=== PATIENT | female | born 1965 | race Caucasian/White ===

== ENCOUNTER 2022-10-04 08:30 | Observation (INO) ==
--- NOTE | 2022-09-05 11:14 | PAT Medication Instructions ---
Medication Instructions Date of Service September 05, 2022 Home Medications atorvastatin 40 mg tablet 40 mg PO QAM gabapentin 300 mg capsule 300 mg PO BID multivitamin 1 tab PO QAM naproxen 500 mg tablet 500 mg PO BID PRN Pain omeprazole 40 mg capsule,delayed release 40 mg PO QAM sertraline 25 mg tablet (Zoloft) 25 mg PO HS tramadol 50 mg tablet 50 mg PO UD PRN Pain ASK your surgeon for instructions naproxen 500 mg tablet 500 mg PO BID PRN Pain DO NOT take the morning of surgery multivitamin 1 tab PO QAM Take morning of surgery With a small sip of water, OTHERWISE NOTHING TO EAT OR DRINK AFTER MIDNIGHT: atorvastatin 40 mg tablet 40 mg PO QAM gabapentin 300 mg capsule 300 mg PO BID omeprazole 40 mg capsule,delayed release 40 mg PO QAM tramadol 50 mg tablet 50 mg PO UD PRN Pain (if needed) Take evening before surgery gabapentin 300 mg capsule 300 mg PO BID sertraline 25 mg tablet (Zoloft) 25 mg PO HS tramadol 50 mg tablet 50 mg PO UD PRN Pain (if needed) Other Notes If you have any questions please call us at [phone] or [phone] or [phone] or [phone]
--- NOTE | 2022-09-11 14:19 | Anesthesiology Consultation ---
Date of Service September 11, 2022 Assessment & Plan (1) Encounter for pre-operative examination: Chart Review Chart Review: Acceptable Risk for Surgery (pending surgeon ordered PCP clearance ) and Patient seen in Pre Admission Testing - Awaiting PCP clearance (pt setting up) ([facility] - Lupe Abbasi) - Check coags AM DOS (mildly elevated PTT on preop labs- discussed with Dr. Booker) Pt currently scheduled as 23 hours observation. If surgeon decides to change patient to Same Day Joint, patient would be acceptable risk for TKA, pending patient is motivated, has good support and surgeon's office completes [facility] Program preop requirements. Per PAT appt on 09/11/22, patient denies any recent travel. No recent Covid exposures, Covid related symptoms, or recent Covid positive tests. Pt is vaccinated for Covid. Will leave to surgeon's discretion if preop Covid testing needed. Educated on importance of using Covid precautions one week prior to surgery Left thumb ulnar collateral ligament repair 03/26/22= done under [facility] with LMA #4 x 1 attempt/atraumatic/good seal Teaching & Discussion Pre-Anesthesia Teaching/Discussion Notes: Instructed NPO after midnight before surgery,except medications with 15 cc of water. Medication instructions provided according to the PAT guidelines. History Surgery Operation Date: 10/04/22 08:50 Proposed Procedures p Left Total Knee Arthroplasty - Chase Connolly MD Height/Weight Height: 5 ft 1 in Weight: 88 kg Allergies Allergy/AdvReac Type Severity Reaction Status Date / Time acetaminophen Allergy Unknown Rash Verified 09/04/22 08:40 codeine Allergy Unknown Rash Verified 09/04/22 08:40 erythromycin base Allergy Unknown Rash Verified 09/04/22 08:40 Penicillins Allergy Unknown rash, Verified 09/04/22 08:40 throat irritation Sulfa (Sulfonamide Allergy Unknown Rash Verified 09/04/22 08:40 Antibiotics) Medications Home Medications Medication Instructions Recorded Confirmed Last Taken atorvastatin 40 mg tablet 40 mg PO QAM 01/17/21 09/04/22 03/26/22 04:00 gabapentin 300 mg capsule 300 mg PO BID 01/17/21 09/04/22 03/26/22 04:00 multivitamin 1 tab PO QAM 01/17/21 09/04/22 03/23/22 naproxen 500 mg tablet 500 mg PO BID PRN Pain 01/17/21 09/04/22 Unknown omeprazole 40 mg capsule,delayed 40 mg PO QAM 01/17/21 09/04/22 03/23/22 release sertraline 25 mg tablet (Zoloft) 25 mg PO HS 03/22/22 09/04/22 03/25/22 tramadol 50 mg tablet 50 mg PO UD PRN Pain 03/26/22 09/04/22 03/25/22 Past Medical History Medical History GERD (gastroesophageal reflux disease) Well controlled and stable Hot flashes states reason for Zoloft Hyperlipidemia Osteoarthritis hx injection left knee Mar 2022. Exercise / Class Metabolic Activity II 4-5 Yardwork/Stairs/Walk up hill (one flight of stairs - no chest pain or SOB ) Past Family History Family History Father Family hx of colon cancer Other No family history of adverse response to anesthesia Past Surgical History Surgical History (Updated 09/11/22 @ 14:27 by Fabby Flynn PA-C) Fusion of spine Cervical (ROM "30%) s/p fall at work Residual minimal dysphagia and left arm pain from surgery History of bilateral tubal ligation "at [facility]" History of x 3 History of carpal tunnel release LEFT History of colonoscopy History of esophagogastroduodenoscopy (EGD) Past Anesthesia History No Hx of Anesthesia Complications and No Family Hx of Anesthesia Complications History of PONV No Hx of PONV and No Hx of Motion Sickness Social History Smoking Status: Never smoker Do You Dip or Chew Tobacco: No Hx Alcohol Use: Yes Alcohol type: wine alcohol intake frequency: a few times a month Hx Substance Use: No substance use type: does not use Review of Systems Patient denies chest pain, shortness of breath, dyspnea on exertion, cough, wheezing, palpitations. No hx of seizures, stroke, VT, apnea/snoring. No hx of blood clots or blood transfusions Physical Exam Vital Signs VITALS BP 124/84 P 91 TEMP 98.2 SP02 96% RESP 16 Constitutional no acute distress ENMT Mouth: no TMJ clicking Thyromental Distance: > or= 3.5 Finger Breadths (3.5) Mallampati Class: II Caps on molars and side teeth Neck + limited neck extension (significant ) Respiratory normal respiratory effort; no respiratory distress Auscultation: lungs clear to auscultation bilaterally; no wheezes Cardiovascular Rate/Rhythm: regular rate and regular rhythm Heart Sounds: no murmur Vessels: no carotid bruit Musculoskeletal Spine: + pain with cervical ROM Extremities: extremities normal to inspection Psychiatric Orientation: alert Lab Results Anesthesia Preop Results Results Anesthesia Widget: WBC 5.82 K/ul (4.8-10.8) 09/11/22 Hgb 14.1 g/dl (12.0-16.0) 09/11/22 Hct 40.6 % (37.0-47.0) 09/11/22 Plt 181 K/uL (130-400) 09/11/22 Na 139 mmol/L (136-145) 09/11/22 K 3.7 mmol/L (3.5-5.1) 09/11/22 Cl 103 mmol/L (98-107) 09/11/22 CO2 31 mmol/L (21-32) 09/11/22 BUN 16 mg/dl (6-23) 09/11/22 Creat 0.68 mg/dl (0.6-1.2) 09/11/22 Fasting Glucose 120 mg/dl (70-99) H 09/11/22 PT 12.2 Seconds (9.0-12.0) H 09/11/22 PTT 34.1 Seconds (21.0-31.0) H 09/11/22 INR 1.1 (0.9-1.1) 09/11/22 Urine Color Yellow 09/11/22 Urine Appearance Cloudy (Clear) A 09/11/22 Urine pH 7.5 (4.5-7.5) 09/11/22 Urine Specific [place] 1.021 (1.000-1.030) 09/11/22 Urine Protein Negative (Negative) 09/11/22 Urine Glucose (UA) Negative (Negative) 09/11/22 Urine Ketones Negative (Negative) 09/11/22 Urine Blood Negative (Negative) 09/11/22 Urine Nitrite Positive (Negative) A 09/11/22 Urine Bilirubin Negative (Negative) 09/11/22 Urine Urobilinogen Negative (Negative) 09/11/22 Urine Leukocyte Esterase 3+ (Negative) H 09/11/22 Urine WBC (Auto) >30 /hpf (0-5) H 09/11/22 Urine RBC (Auto) 0-4 /hpf (0-4) 09/11/22 Urine Hyaline Casts (Auto) 1-5 /lpf (0-5) 09/11/22 Urine Epithelial Cells (Auto) >30 /lpf (0-5) H 09/11/22 Urine Bacteria (Auto) 4+ (Negative) H 09/11/22 Blood Type O Positive 09/11/22 Antibody Screen NEGATIVE 09/11/22 Testing Laboratory Results Surgeon's office informed of abnormal UA and positive MRSA screen swab- will leave to surgeon's discretion on how to proceed Elevated PTT- will repeat DOS Electrocardiogram Date: 09/11/22 Findings: + NSR @ (82bpm ) Normal EKG per cardio
--- NOTE | 2022-09-12 15:07 | History & Physical Report ---
Date of Service September 12, 2022 Assessment & Plan (1) Osteoarthritis of left knee: Plan: PRE-OP Diagnosis: Left knee osteoarthritis Planned Procedure: Left total knee arthroplasty Plan: Patient is scheduled to undergo this procedure at the [facility] with Dr. Connolly on September. Risks and complications of the procedure such as: Infection, bleeding, pain, scarring, nerve blood vessel damage, weakness, wound problems, stiffness, incomplete relief of symptoms, hardware failure, hardware loosening, wear, fracture, tendon or ligament injury, blood clots, embolism, cardiac, stroke and were explained to the patient at her visit today and informed consent for the procedure was obtained. Patient also understands risks of proceeding with surgical intervention during the COVID-19 pandemic. Currently she is asymptomatic and states that she has not been in contact with anyone positive for the virus recently. We will need to obtain preoperative medical clearance from the patient's primary care provider Lupe Ortiz. Patient is scheduled to meet with anesthesia at the hospital later this afternoon. While there she will obtain a CBC with differential, complete metabolic panel, PT/INR, PTT, blood type and screen, urinalysis, urine culture and sensitivity, EKG. During today's visit we reviewed the total knee packet. I provided the patient with paperwork to obtain obtaining a handicap placard for her vehicle. I provided her with information about lectures offered by [facility] in regards to joint replacement surgery. Patient has a walker that she will bring with her on the day of the procedure. I recommended that she purchase a shower chair and raised toilet seat. We discussed discharge planning from the hospital. Patient states she will most likely do in-home physical therapy for the first 2 weeks before transitioning to outpatient physical therapy. I advised the patient that she will be provided with a prescription for narcotic pain medication for postoperative pain control. We will have her on aspirin twice daily for the first 30 days postoperatively for blood clot prevention. Patient verbalized understanding of all information provided during today's visit. She thanks for the care that she received. If she has questions or concerns prior to her surgery, she will contact clinic. Patient be scheduled for 2-week postoperative follow-up visit with myself on October 19, 2022. After receiving the patient's preoperative studies, it was determined that she is colonized with MRSA and has an acute urinary tract infection. I contacted the patient and advised her that I was sending prescription for ciprofloxacin to treat her UTI along with prescriptions for mupirocin and chlorhexidine to apply to her nostrils for 5 days prior to surgery. This chart was completed utilizing [employer] ([employer]) voice recognition software. Grammatical errors, random word insertions, pronoun errors, and in complete sentences are an occasional consequence of the system. Any questions or concerns about the content, text, or information contained within the body of this dictation should be addressed directly to the physician for clarification. History of Present Illness Chief Complaint: Chief Complaint: Left knee pain Primary Care Provider: NO PCP History of Present Illness (including history relevant to procedure): This 56-year-old female presents the clinic today for preoperative history and physical. Patient states that she has had pain in her left knee for over 10 years. She actually had 2 previous knee arthroscopies done back in 1998 and 2004 for meniscus tears. She says her pain worsened in the last 4 years. She has been taking naproxen that gives her a little bit of relief. She has pain after walking more than half mile that causes her to stop. She non-reciprocates stairs. It is affecting her ability to perform at her job. She says it feels better if she uses heat, but really inactivity makes it worse. She feels the pain most in the anterior knee. It is nonradiating and fairly sharp in ch aracter. Patient is failed conservative treatment with physical therapy, corticosteroid injections. Patient was initially scheduled to undergo this procedure in late January 2021, however surgery was canceled due to the COVID- 19 pandemic and bed availability. She did consider doing this under the outpatient joint pathway, however she decided to elect to stay overnight because she lives several hours away from the facility. Review Of Systems: A 12 point review of systems is performed and is unremarkable except for those things stated in the HPI and past medical history. Past Medical History: Problems: Osteoarthritis of left knee Knee osteomyelitis, left Preop examination GERD (gastroesophageal reflux disease) High cholesterol Procedure History Procedure Procedure Date Comments Left knee - Meniscus surgery x 2 Cervical spinal fusion - [facility] Left thumb UCL repair Allergies and Sensitivities: erythromycin(hives) codeine(hives) Tylenol(Hives) sulfADIAZINE(Hives) PCN (penicillin)(hives) Current Home Meds: (Last Updated 09/12 13:08) atorvastatin (atorvastatin 20 mg oral tablet) 20 mg PO Daily chlorhexidine topical (chlorhexidine 2% topical pad) Wipe nasal passages 3 times daily, starting 5 days before surgery. ciprofloxacin (Cipro 500 mg oral tablet) 500 mg PO q12h ciprofloxacin (Cipro 500 mg oral tablet) 500 mg PO q12h UTI gabapentin (gabapentin 300 mg oral capsule) 300 mg PO qid mupirocin topical (Bactroban 2% topical ointment) 1 appl topical tid apply a thin film to nasal passagesStart 5 days before surgery naproxen (naproxen 500 mg oral tablet) 500 mg PO bid PRN: as needed for pain nortriptyline (nortriptyline 10 mg oral capsule) omeprazole (omeprazole 20 mg oral delayed release capsule) 20 mg PO bid ondansetron (Zofran 4 mg oral tablet) 4 mg PO q8h PRN: as needed for nausea/vomiting tiZANidine (tiZANidine 2 mg oral tablet) 8 mg PO q8h Initial Wt: 09/11 87.0 kg 191 lb Allergies Allergy/AdvReac Type Severity Reaction Status Date / Time acetaminophen Allergy Unknown Rash Verified 09/04/22 08:40 codeine Allergy Unknown Rash Verified 09/04/22 08:40 erythromycin base Allergy Unknown Rash Verified 09/04/22 08:40 Penicillins Allergy Unknown rash, Verified 09/04/22 08:40 throat irritation Sulfa (Sulfonamide Allergy Unknown Rash Verified 09/04/22 08:40 Antibiotics) Home Medications Medication Instructions Recorded Confirmed Type atorvastatin 40 mg tablet 40 mg PO QAM 01/17/21 09/04/22 History gabapentin 300 mg capsule 300 mg PO BID 01/17/21 09/04/22 History multivitamin 1 tab PO QAM 01/17/21 09/04/22 History naproxen 500 mg tablet 500 mg PO BID PRN Pain 01/17/21 09/04/22 History omeprazole 40 mg capsule,delayed 40 mg PO QAM 01/17/21 09/04/22 History release sertraline 25 mg tablet (Zoloft) 25 mg PO HS 03/22/22 09/04/22 History tramadol 50 mg tablet 50 mg PO UD PRN Pain 03/26/22 09/04/22 History Past Med/Surg History Medical History GERD (gastroesophageal reflux disease) Well controlled and stable Hot flashes states reason for Zoloft Hyperlipidemia Osteoarthritis hx injection left knee Mar 2022. Surgical History Fusion of spine Cervical (ROM "30%) s/p fall at work Residual minimal dysphagia and left arm pain from surgery History of bilateral tubal ligation "at [facility]" History of x 3 History of carpal tunnel release LEFT History of colonoscopy History of esophagogastroduodenoscopy (EGD) Family History Father Family hx of colon cancer Other No family history of adverse response to anesthesia Social History Smoking Status: Never smoker Second Hand Exposure: No; Do You Dip or Chew Tobacco: No; Hx Alcohol Use: Yes Alcohol type: wine Hx Substance Use: No Preferred Language: Maldivian Communication Ability: Effective At Home Independent Call Center Agent Required: No Beliefs That Will Affect Care: Faith Faith Beliefs: advent Current Living Situation: Spouse Feels Safe at Home: Yes Assistive Devices: Contacts and Glasses Review of Systems All systems reviewed & are unremarkable except as noted in Subjective Physical Exam Physical Exam: Physical Exam: (relevant to the procedure, including heart and lung evaluation) General: Alert and oriented x3 with proper grooming and hygiene Eyes: Pupils are equal and reactive to light with accommodation. Extraocular movements are intact Throat: Posterior oropharynx is clear with absence of edema, erythema or exudate. Dentition is appropriate Cardiac: Regular rate and rhythm with no murmurs or gallops appreciated Lungs: Regular rate and rhythm with no murmurs or gallops appreciated Abdomen: Obese, nondistended, nontender with NABS Extremities: Left knee; range of motion is from 5 degrees of extension to 100 degrees of flexion. There is visible valgus malalignment. Patient has medial and lateral joint line tenderness when the knee is palpated in the flexed position. There is audible crepitation with passive range of motion. Her patella is not mobile due to arthritic change within the patellofemoral joint. There is no laxity with varus or valgus stressing. Patient is neurovascular intact in the left lower extremity. Neuro: Cranial nerves II through XII are intact no motor or sensory deficit Skin: Normal in appearance no open skin areas or discharge Results & Data Diagnostic Findings Studies (relevant to the procedure): imaging of the left knee obtained in April of 2022 show [id number] osteoarthritis of the left knee. There is calcification noted in the posteromedial knee
[~2022-10-04 08:30] MED LIST: ALLERGY Noted to ORDERED Medication SCH; BUPIVACAINE 0.5 % 5 MG/1 ML PF 10ML VIAL ONE; FAMOTIDINE 20 MG TAB PO SCH; LR 500ML BOLUS, THEN 15ML/HR IV SCH; LR 60ML/HR IV SCH; ROPIVACAINE 0.5% 5 MG/ML 30 ML VIAL ONE; ROPIVACAINE 0.5% HCL/PF 150 MG, BUPIVACAINE 0.75% MPF 20 ML, EPINEPHrine 0.15 MG, Ketor... INFIL SCH; Scopolamine 1 MG TDSY TD SCH; TRANEXAMIC ACID 1,000 MG **IV Intra-op IV SCH; TRANEXAMIC ACID 1,000 MG **IV Pre-op IV SCH; VANCOMYCIN HCL 1,250 MG in SODIUM CHLORIDE 0.9% 250 ML IV SCH; ceFAZolin 2000MG 2,000 MG/15 ML SYR IV SCH; dexAMETHasone 4 MG TAB PO SCH; traMADol HCL 50 MG TABLET PO SCH
[2022-10-04 09:31] LABS: INR 1.1 (0.9-1.1); Partial Thromboplastin Ratio 1.2; Partial Thromboplastin Time 34.3 Seconds (21.0-31.0)
[2022-10-04] MEDS ORDERED: MIDAZOLAM HCL 1 MG/ML 2ML VIAL ONE (10:34)
[2022-10-04] MEDS ORDERED: HYDROmorphone INJ 2 MG/ML SYR/VIAL IV PRN (10:58)
[2022-10-04] MEDS ORDERED: ePHEDrine sulfate 50 MG/ML AMP IV PRN (10:58)
[2022-10-04] MEDS ORDERED: ONDANSETRON INJ 2 MG/ML 2 ML VIAL IV PRN ×2 (10:58→13:44)
[2022-10-04] MEDS ORDERED: ATROPINE SULFATE 0.1 MG/ML 10ML SYR IV PRN (10:58)
--- NOTE | 2022-10-04 10:58 | History & Physical Bridge Note ---
Date of Service October 04, 2022 History & Physical Bridge Note I have examined the patient, reviewed the History & Physical and in the interval since the performance of the History & Physical I have noted the following changes of clinical significance: no changes noted
[2022-10-04] MEDS ORDERED: ORTHO JOINT ANESTHETIC ONE (11:16)
[2022-10-04] MEDS ORDERED: PROPOFOL IV EMULSION 10 MG/ML 20 ML VIAL IV ONE (11:54)
[2022-10-04] MEDS ORDERED: ceFAZolin 2000MG 2,000 MG/15 ML SYR IV ONE (12:10)
--- NOTE | 2022-10-04 13:32 | Operative Report ---
Post Operative Report Pre & Post Diagnosis Operation Date: 10/04/22 10:50 Pre-Op Diagnosis: Left Knee Osteoarthritis Post-Op Diagnosis: Left Knee Osteoarthritis I identified the patient and participated in the time-out.: Yes Procedure Operation Date: 10/04/22 10:50 Actual Procedures p Left Total Knee Arthroplasty(Left) - Chase Connolly MD Surgeon Chase Connolly MD Disc Ruler Operator AMBROSIO Geiger PA-C. No resident or fellow was available to assist. Estimated Blood Loss 100 Findings Consistent with Post-Op Diagnosis Specimens Left knee bone and soft tissue contents Anesthesia Type Spinal MAC Complications none Disposition Disposition: Recovery Room Indications 56-year-old female with left knee osteoarthritis refractory to conservative management. X-rays demonstrate [id number] arthritis. I had a long discussion with her about the risks and benefits of surgery, alternatives to surgery, and expected outcomes. After reviewing all these she elected to proceed with surgery. All questions were answered. Informed consent was signed. Description of Procedure Patient was identified in the preoperative holding area where the surgical site, left knee, was marked. Spinal anesthetic was placed by anesthesia. Patient was brought back to the operating room, placed on the operating room table, and IV sedation was administered. A bump was placed underneath the ipsilateral hip. All bony prominences were padded. Perioperative antibiotics and tranexamic acid were administered. Exam under anesthesia was performed. This demonstrated patient of valgus malalignment of approximately 12 degrees. Range of motion was approximately 6 degrees up to 105 degrees. Stable to varus and valgus stressing at 30 degrees. The surgical site was prepped and draped in the normal sterile f ashion. Prior to incision a multidisciplinary timeout was called. All in the room were in agreement. We began by exsanguinating the limb with an Esmarch bandage. Tourniquet was inflated to 250 mmHg. A 14 cm long incision was made over the anterior aspect of the knee. I dissected through the subcutaneous tissues to the level of the fascia. Full-thickness flaps were raised above the fascia. A median parapatellar arthrotomy was made. Half the fat pad was excised. A medial release was performed with Bovie electrocautery on the proximal tibia. Synovitis in the knee and suprapatellar pouch was removed. The patella was then everted and held with 2 towel clips. The thickness of the patella was measured at 24 mm. Patellar resection was performed. Caliper showed the patella thickness now to be 14 mm. A size 35 trial was placed and had a great fit. The 3 drill holes were placed then the trial button was placed. The patellar thickness was now 23 mm which I was very happy with. The patellar trial was then removed, and the knee was flexed up. Retractors were placed to protect the MCL and LCL. Osteophytes were removed from the femoral condyles and intercondylar notch. The ACL and PCL were excised. Intramedullary drill guide was drilled into the femur. Distal femoral cutting guide was placed set at 5 degrees of valgus to resect 11 mm off the distal femur. Distal femoral resection was made without difficulty. The tibia was then exposed. The lateral meniscus was sharply excised. The tibial cutting jig was positioned in line with the tibial shaft in the coronal plane and with 3 degrees of posterior slope in the sagittal plane to resect 9 mm off the less involved compartment. The jig was then pinned in position and the tibial cut was made. We then brought the knee into full extension. Lamina spreaders were placed. The medial meniscus was excised. The extension block was then placed for 5 mm thickness poly. This gave us full extension and excellent stability to varus and valgus stress. Next the extension block was removed, the knee was flexed up, collateral ligaments were protected, and the epicondylar axis and Whitesides line were marked out on the distal femoral cut. Femoral sizing guide was placed. External rotation was set at 3 degrees so that the posterior cut would be parallel with the epicondylar axis and perpendicular with Whitesides line. The patient sized to a size 4 femur. 2 pins were then placed through the jig into the distal femur. The jig was removed and the appropriately sized 4-in-1 cutting jig was placed over the pins, then fixated to the bone using threaded, headed pins. We confirmed that we would not notch the femur with our anterior cut. Our 4 cuts were then made. The cutting jig was removed. The flexion bl ock was then placed with the knee held at 90 degrees. There was excellent stability to varus and valgus at 90 degrees with no gapping medially or laterally. Next the box cutting jig was placed on the distal femur. The box cut was made and the femoral trial was impacted into position. Lug holes were drilled in the distal femur. We then reexposed the tibia. The tibia was sized to a 4 for a fixed-bearing component. The tibial tray with a 5 mm thickness polyethylene liner was placed on the cut tibial surface and the knee was brought through a full range of motion. There was excellent stability to varus valgus stress throughout a full range of motion, which was approximately 0-125 degrees. Bovie electrocautery was used to annemarie the tibia at the site where the tibial tray rested in full extension. We then flexed up the knee, removed the polyethylene liner, and pinned the tibial tray into position to match the cautery annemarie. The intramedullary drill followed by the keel punch were used to prepare the tibia. Next the trial components were removed. I then injected the posterior capsule and periosteum with the periarticular injection cocktail. The bone cuts were then irrigated and dried while the cement was mixed on the back table. The femoral component was cemented on first. Excess cement was removed. A lap sponge was placed over the femoral component for protection, then the tibia was subluxated anteriorly. The all polyethylene tibial component was then cemented in place. Again excess cement was removed. The knee was brought into full extension and held there until the cement cured. The patella was cemented and clamped. Dilute Betadine solution was then allowed to soak in the knee while the cement cured. Once the cement was fully cured, the knee was irrigated out, the tourniquet was let down and meticulous hemostasis was ensured. The knee was brought through a full range of motion. I was were very happy with the patella tracking and the stability. We then began to close. Interrupted 0 Vicryl suture was used to repair the patellar retinaculum in [id number] fashion. The quadriceps and patellar tendons were run with #1 Vicryl. The deep dermal layer was closed with interrupted 2-0 Vicryl. Dermabond and Zipline was used for the skin, followed by a Silverlon dressing. A compressive Jorge L wrap was placed and the knee was placed into a knee immobilizer. Patient's sedation was lifted and was transferred to recovery room in stable condition. Summary of implants: Depuy Attune Posterior Stabilized Cemented Femur, size 4 left Attune All-polyethylene tibial component, posterior stabilized 5 mm thickness, size 4 Attune patella medialized dome, size 35 2 batches of simplex high viscosity bone cement Postoperative course: Patient will be admitted to the floor for pain control and monitoring. Weightbearing as tolerated with a walker with no knee range of motion for 48 hours. Aspirin for DVT prophylaxis. I attest to the content of the Intraoperative Record and any orders documented therein. Any exceptions are noted below.
[2022-10-04] MEDS ORDERED: VANCOMYCIN CONSULT ACTIVE PRN (13:44)
[2022-10-04] MEDS ORDERED: HYDROmorphone INJ 0.5 MG/0.5 ML SYR IV PRN (13:44)
[2022-10-04] MEDS ORDERED: diphenhydrAMINE 50 MG/ML VIAL IV PRN (13:44)
[2022-10-04] MEDS ORDERED: bisacodyL 10 MG SUPP PR PRN (13:44)
[2022-10-04] MEDS ORDERED: ALUMINUM/MAGNESIUM SUSP 30 ML UDC PO PRN (13:44)
[2022-10-04] MEDS ORDERED: NALOXONE HCL 0.4 MG/1 ML VIAL/CARP IV PRN (13:44)
[2022-10-04] MEDS ORDERED: METOCLOPRAMIDE HCL INJ 5 MG/ML 2 ML VIAL IV PRN (13:44)
[2022-10-04] MEDS ORDERED: MAGNESIUM HYDROXIDE SUSP 30 ML UDC PO PRN (13:44)
--- NOTE | 2022-10-04 13:44 | Operative Report ---
Post Operative Report Pre & Post Diagnosis Operation Date: 10/04/22 10:50 Pre-Op Diagnosis: Left Knee Osteoarthritis Post-Op Diagnosis: Left Knee Osteoarthritis I identified the patient and participated in the time-out.: Yes Procedure Operation Date: 10/04/22 10:50 Actual Procedures p Left Total Knee Arthroplasty(Left) - Chase Connolly MD Surgeon Chase Connolly MD Master Fire Control Technician AMBROSIO Geiger PA-C. No resident or fellow was available to assist. Estimated Blood Loss 100 Findings Consistent with Post-Op Diagnosis Specimens none Description of Procedure I was present during the entire case assisting with positioning,prepping, draping, wound retraction, wound closure, dressing and immobilizer placement. No fellow present. Please see Dr. Connolly procedure note for specifics of the case. I attest to the content of the Intraoperative Record and any orders documented therein. Any exceptions are noted below.
[2022-10-04] MEDS ORDERED: traMADol HCL 50 MG TABLET PO PRN (13:48)
--- NOTE | 2022-10-04 14:41 | XRay Report ---
LEFT KNEE 2 VIEWS History: Left total knee arthroplasty. Degenerative arthritis. Postop. FINDINGS: The patient is status post a left total knee arthroplasty. The hardware is intact. No fract ure or dislocation. IMPRESSION: Left total knee arthroplasty. No evidence for hardware complication. ACT 112: Negative or not required by law. Electronically signed by: Wilmer Harris M.D. 10/04/2022 2:40 PM
--- NOTE | 2022-10-04 14:58 | Anesthesiology Progress Note ---
Date of Service October 04, 2022 Anesthesia Post Procedure Vital Signs Vital Signs: Temp Pulse Pulse Resp BP Pulse Ox O2 Del Method 10/04/22 14:47 36.8 C 80 18 111/75 96 Room Air 10/04/22 14:30 78 15 125/68 96 Room Air 10/04/22 14:10 37.2 C 72 13 113/73 96 Room Air 10/04/22 14:00 78 20 115/77 98 Room Air 10/04/22 13:50 79 23 116/76 98 Room Air 10/04/22 14:20 80 15 112/74 96 Room Air 10/04/22 13:43 37.2 C 79 17 122/82 97 Room Air 10/04/22 08:56 36.6 C 71 20 123/89 99 Room Air Pain Intensity Left Knee: Pain Intensity: 8 Transfer of Care Handoff Completed per policy Notes Mental Status: alert / awake / arousable and participated in evaluation Nausea / Vomiting: adequately controlled Pain: adequately controlled Airway Patency, RR, SpO2: stable & adequate BP & HR: stable & adequate Hydration State: stable & adequate Neuraxial Anesthesia: was administered and sensory block is resolving Anesthetic Complications: no major complications apparent and Pt Satisfied with anesthetic care
[2022-10-04] MEDS: ALLERGY Noted to ORDERED Medication SCH ×4 (15:03→15:51)
[2022-10-04] MEDS: SODIUM CHLORIDE 0.9% 1000ML 1,000 ML IV SCH (15:38)
[2022-10-04] MEDS: KETOROLAC TROMETHAMINE 15 MG/ML VIAL IV SCH ×2 (15:50→21:11)
[2022-10-04] MEDS: Scopolamine CHECK PATCH PLACEMENT SCH (15:52)
--- NOTE | 2022-10-04 17:14 | Orthopedic Progress Note ---
Date of Service October 04, 2022 Assessment & Plan (1) Status post total knee replacement, left: Plan: routine postoperative care. Physical therapy and Occupational Therapy tomorrow. Plan on discharge home tomorrow after PT OT. My physician's child life assistant will see her tomorrow morning. Admission and Anticipated Discharge Date Admission Date: October 04, 2022 Subjective Postop day 0 status post left total knee arthroplasty. Patient reports her knee is feeling well. Denies fevers chills chest pain shortness of breath. No nausea or vomiting. Physical Exam Physical Exam: Resting comfortably in no acute distress. Left leg reveals dressing to be clean dry and intact. She is able to wiggle her toes and dorsi and plantarflex her ankle. Sensory intact to light touch dorsal and plantar aspects of the left foot. Results & Data Vital Signs (Past 12 Hours) Vital Signs Temp Pulse Pulse Resp BP Pulse Ox O2 Del Method 10/04/22 16:51 36.9 C 81 14 133/88 100 Room Air 10/04/22 15:44 36.4 C L 71 14 118/81 98 Room Air 10/04/22 15:12 36.8 C 71 16 110/75 97 Room Air 10/04/22 14:47 36.8 C 80 18 111/75 96 Room Air 10/04/22 14:30 78 15 125/68 96 Room Air 10/04/22 14:10 37.2 C 72 13 113/73 96 Room Air 10/04/22 14:00 78 20 115/77 98 Room Air 10/04/22 13:50 79 23 116/76 98 Room Air 10/04/22 14:20 80 15 112/74 96 Room Air 10/04/22 13:43 37.2 C 79 17 122/82 97 Room Air 10/04/22 08:56 36.6 C 71 20 123/89 99 Room Air Diagnostic Findings I reviewed her postop x-rays that show the hardware in good position with no evidence of complication. Calcification seen in the posterior knee preoperatively is still present. Discussed with the patient that this is likely not going to cause her any issues postoperatively, however if it does , it could always be removed later.
[2022-10-04] MEDS: oxyCODONE HCL IR 5 MG TAB (IMMEDIATE RELEASE) PO PRN ×2 (17:54→23:40)
[2022-10-04] MEDS: ceFAZolin 2000MG 2,000 MG/15 ML SYR IV SCH (19:28)
[2022-10-04] MEDS ORDERED: TRANEXAMIC ACID / 0.7% NACL 1,000 MG/100 ML BAG IV SCH (19:45)
[2022-10-04] MEDS ORDERED: SERTRALINE HCL 50 MG TABLET PO SCH (21:00)
[2022-10-04] MEDS ORDERED: SENNA 8.6 MG TAB PO SCH (21:00)
[2022-10-04] MEDS: DOCUSATE SODIUM 100 MG CAP PO SCH (21:10)
[2022-10-04] MEDS: GABAPENTIN 300 MG CAP PO SCH (21:10)
[2022-10-04] MEDS ORDERED: VANCOMYCIN HCL 1,250 MG in SODIUM CHLORIDE 0.9% 500 ML IV SCH (23:45)
[2022-10-05] MEDS: Scopolamine CHECK PATCH PLACEMENT SCH ×2 (00:02→07:45)
[2022-10-05] MEDS: ALLERGY Noted to ORDERED Medication SCH (00:05)
[2022-10-05] MEDS: ceFAZolin 2000MG 2,000 MG/15 ML SYR IV SCH (03:16)
[2022-10-05] MEDS: KETOROLAC TROMETHAMINE 15 MG/ML VIAL IV SCH ×2 (03:16→07:47)
[2022-10-05] MEDS: SODIUM CHLORIDE 0.9% 1000ML 1,000 ML IV SCH (04:36)
[2022-10-05] MEDS: oxyCODONE HCL IR 5 MG TAB (IMMEDIATE RELEASE) PO PRN (05:54)
[2022-10-05 06:17] LABS: Hematocrit (blood only) 37.8 % (37.0-47.0); Hemoglobin 13.2 g/dl (12.0-16.0); Mean Corpuscular Hemoglobin 32.8 pg (25.0-34.0); Mean Corpuscular Hgb Conc 34.9 g/dL (32.0-36.0); Mean Corpuscular Volume 93.8 fL (80.0-100.0); Mean Platelet Volume 10.5 fL (9.4-12.4); Platelet Count 182 K/uL (130-400); RDW Standard Deviation 41.2 fL (36.4-46.3); Red Blood Count 4.03 M/uL (4.20-5.40); White Blood Count 11.29 K/ul (4.8-10.8)
[2022-10-05 07:34] LABS: BUN Creatinine Ratio 13.6 (10-20); Calcium 8.1 mg/dl (8.6-10.3); Creatinine Clr Calc Pharmacy 94.5 ml/min; Est GFR (African American) 115.3 ml/min; Est GFR (Non-African American) 99.4 ml/min; Potassium 4.2 mmol/L (3.5-5.1)
[2022-10-05] MEDS: GABAPENTIN 300 MG CAP PO SCH (07:45)
[2022-10-05] MEDS: DOCUSATE SODIUM 100 MG CAP PO SCH (07:46)
[2022-10-05] MEDS ORDERED: dexAMETHasone 4 MG TAB PO SCH (08:00)
[2022-10-05] MEDS ORDERED: PANTOprazole 40 MG TAB PO SCH (09:00)
[2022-10-05] MEDS ORDERED: ATORVASTATIN 40 MG TAB PO SCH (09:00)
[2022-10-05] MEDS ORDERED: NON-FORMULARY MEDICATION (Multivitamin Tablet) PO SCH (09:00)
[2022-10-05] MEDS ORDERED: MULTIVITAMIN TAB PO SCH (09:00)
--- NOTE | 2022-10-05 09:21 | Orthopedic Progress Note ---
Date of Service October 05, 2022 Assessment & Plan (1) Status post total knee replacement, left: Plan: Weightbearing as tolerated with walker assistance ICDs wrap Immobilizer use for the first 48 hours postoperatively Keep Silverlon dressing in place until follow-up DVT prophylaxis with aspirin and OJ stockings Pain control with p.o. medication Plan is to discharge home later this morning with in-home physical therapy for the first 2 weeks Follow-up at [facility] orthopedics as previously scheduled With questions contact our clinic at [phone] Admission and Anticipated Discharge Date Admission Date: October 04, 2022 Subjective This 56-year-old female is day 1 status post left total knee arthroplasty. Patient states she is doing very well. She states her pain is effectively controlled with the oral pain medication she was given. She is very pleased with the results of her surgery. She is anxious to be discharged home later this morning. Currently she denies chest pain, shortness of breath, fever, chills, sweats, lethargy or numbness or tingling in her left lower extremity. She also denies nausea, vomiting, diarrhea or difficulty voiding. Review of Systems Review of Systems: All systems reviewed & are unremarkable except as noted in Subjective Physical Exam Physical Exam: Left knee: Outer dressing was removed. Silverlon is clean dry and intact and left in place. Patient is able perform an active straight leg raise test. She is able to actively dorsi and plantarflex her foot. She is able to range 0 degrees of extension actively and approximately 85 degrees flexion without difficulty. Her quad strength is 4 out of 5. She is neurovascularly intact in the left lower extremity. Results & Data Vital Signs (Past 12 Hours) Vital Signs Temp Pulse Resp BP Pulse Ox O2 Del Method 10/05/22 07:07 36.9 C 83 18 111/68 94 Room Air 10/05/22 02:16 36.4 C L 85 18 101/63 97 Room Air 10/04/22 22:18 36.4 C L 71 15 117/79 94 Room Air Diagnostic Findings Laboratory Results WBC 11.29 K/ul (4.8-10.8) H 10/05/22 05:34 RBC 4.03 M/uL (4.20-5.40) L 10/05/22 05:34 Hgb 13.2 g/dl (12.0-16.0) 10/05/22 05:34 Hct 37.8 % (37.0-47.0) 10/05/22 05:34 MCV 93.8 fL (80.0-100.0) 10/05/22 05:34 MCH 32.8 pg (25.0-34.0) 10/05/22 05:34 MCHC 34.9 g/dL (32.0-36.0) 10/05/22 05:34 RDW Std Deviation 41.2 fL (36.4-46.3) 10/05/22 05:34 RDW Coeff of Beau 12.0 % (11.5-14.5) 10/05/22 05:34 Plt Count 182 K/uL (130-400) 10/05/22 05:34 MPV 10.5 fL (9.4-12.4) 10/05/22 05:34 PT 12.0 Seconds (9.0-12.0) 10/04/22 08:51 INR 1.1 (0.9-1.1) 10/04/22 08:51 APTT 34.3 Seconds (21.0-31.0) H 10/04/22 08:51 PTT Ratio 1.2 10/04/22 08:51 Sodium 136 mmol/L (136-145) 10/05/22 05:34 Potassium 4.2 mmol/L (3.5-5.1) 10/05/22 05:34 Chloride 104 mmol/L (98-107) 10/05/22 05:34 Carbon Dioxide 28 mmol/L (21-32) 10/05/22 05:34 Anion Gap 4 (3-11) 10/05/22 05:34 BUN 9 mg/dl (6-23) 10/05/22 05:34 Creatinine 0.66 mg/dl (0.6-1.2) 10/05/22 05:34 Est Cr Clr Drug Dosing 94.5 ml/min 10/05/22 05:34 Est GFR ( Amer) 115.3 ml/min 10/05/22 05:34 Est GFR (Non-Af Amer) 99.4 ml/min 10/05/22 05:34 BUN/Creatinine Ratio 13.6 (10-20) 10/05/22 05:34 Glucose 152 mg/dl (70-99(Fasting)) H 10/05/22 05:34 Calcium 8.1 mg/dl (8.6-10.3) L 10/05/22 05:34 Impressions Knee X-Ray 10/04/22 13:44 LEFT KNEE 2 VIEWS History: Left total knee arthroplasty. Degenerative arthritis. Postop. FINDINGS: The patient is status post a left total knee arthroplasty. The hardware is intact. No fracture or dislocation. IMPRESSION: Left total knee arthroplasty. No evidence for hardware complication. ACT 112: Negative or not required by law. Electronically signed by: Wilmer Harris M.D. 10/04/2022 2:40 PM
--- NOTE | 2022-10-05 09:32 | Discharge Summary ---
Date of Service October 05, 2022 Admission HPI Per Admitting Provider History of Present Illness (including history relevant to procedure): This 56-year-old female presents the clinic today for preoperative history and physical. Patient states that she has had pain in her left knee for over 10 years. She actually had 2 previous knee arthroscopies done back in 1998 and 2004 for meniscus tears. She says her pain worsened in the last 4 years. She has been taking naproxen that gives her a little bit of relief. She has pain after walking more than half mile that causes her to stop. She non-reciprocates stairs. It is affecting her ability to perform at her job. She says it feels better if she uses heat, but really inactivity makes it worse. She feels the pain most in the anterior knee. It is nonradiating and fairly sharp in character. Patient is failed conservative treatment with physical therapy, corticosteroid injections. Patient was initially scheduled to undergo this procedure in late January 2021, however surgery was canceled due to the COVID- pandemic and bed availability. She did consider doing this under the outpatient joint pathway, however she decided to elect to stay overnight because she lives several hours away from the facility. Review Of Systems: A 12 point review of systems is performed and is unremarkable except for those things stated in the HPI and past medical history. Past Medical History: Problems: Osteoarthritis of left knee Knee osteomyelitis, left Preop examination GERD (gastroesophageal reflux disease) High cholesterol Procedure History Procedure Procedure Date Comments Left knee - Meniscus surgery x 2 Cervical [facility] fusion - [facility] Left thumb UCL repair Allergies and Sensitivities: erythromycin(hives) codeine(hives) Tylenol(Hives) sulfADIAZINE(Hives) PCN (penicillin)(hives) Current Home Meds: (Last Updated 09/12 13:08) atorvastatin (atorvastatin 20 mg oral tablet) 20 mg PO Daily chlorhexidine topical (chlorhexidine 2% topical pad) Wipe nasal passages 3 times daily, starting 5 days before surgery. ciprofloxacin (Cipro 500 mg oral tablet) 500 mg PO q12h ciprofloxacin (Cipro 500 mg oral tablet) 500 mg PO q12h UTI gabapentin (gabapentin 300 mg oral capsule) 300 mg PO qid mupirocin topical (Bactroban 2% topical ointment) 1 appl topical tid apply a thin film to nasal passagesStart 5 days before surgery naproxen (naproxen 500 mg oral tablet) 500 mg PO bid PRN: as needed for pain nortriptyline (nortriptyline 10 mg oral capsule) omeprazole (omeprazole 20 mg oral delayed release capsule) 20 mg PO bid ondansetron (Zofran 4 mg oral tablet) 4 mg PO q8h PRN: as needed for nausea/vomiting tiZANidine (tiZANidine 2 mg oral tablet) 8 mg PO q8h Initial Wt: 09/11 87.0 kg 191 lb Admission Exam Per Admitting Provider Physical Exam: (relevant to the procedure, including heart and lung evaluation) General: Alert and oriented x3 with proper grooming and hygiene Eyes: Pupils are equal and reactive to light with accommodation. Extraocular movements are intact Throat: Posterior oropharynx is clear with absence of edema, erythema or exudate. Dentition is appropriate Cardiac: Regular rate and rhythm with no murmurs or gallops appreciated Lungs: Regular rate and rhythm with no murmurs or gallops appreciated Abdomen: Obese, nondistended, nontender with NABS Extremities: Left knee; range of motion is from 5 degrees of extension to 100 degrees of flexion. There is visible valgus malalignment. Patient has medial and lateral joint line tenderness when the knee is palpated in the flexed position. There is audible crepitation with passive range of motion. Her patella is not mobile due to arthritic change within the patellofemoral joint. There is no laxity with varus or valgus stressing. Patient is neurovascular intact in the left lower extremity. Neuro: Cranial nerves II through XII are intact no motor or sensory deficit Skin: Normal in appearance no open skin areas or discharge Principal Diagnosis Left knee osteoarthritis Discharge Exam Left knee: Outer dressing was removed. Silverlon is clean dry and intact and left in place. Patient is able perform an active straight leg raise test. She is able to actively dorsi and plantarflex her foot. She is able to range 0 degrees of extension actively and approximately 85 degrees flexion without difficulty. Her quad strength is 4 out of 5. She is neurovascularly intact in the left lower extremity. Discharge Data Allergies Allergy/AdvReac Type Severity Reaction Status Date / Time acetaminophen Allergy Unknown Rash Verified 10/04/22 08:54 codeine Allergy Unknown Rash Verified 10/04/22 08:54 erythromycin base Allergy Unknown Rash Verified 10/04/22 08:54 Penicillins Allergy Unknown rash, Verified 10/04/22 08:54 throat irritation Sulfa (Sulfonamide Allergy Unknown Rash Verified 10/04/22 08:54 Antibiotics) Procedures Performed Operation Date: 10/04/22 10:50 Actual Procedures p Left Total Knee Arthroplasty(Left) - Chase Connolly MD Ordered Studies 10/04/22 05:00 US - OR guided needle placemen Routine Hospital Course (1) Status post total knee replacement, left: Patient had an uneventful overnight stay following left total knee arthroplasty. She is very pleased with the results of the surgery. She is planning on discharge home today with in-home physical therapy for the first 2 weeks postoperatively. Weightbearing as tolerated with walker assistance ICDs wrap Immobilizer use for the first 48 hours postoperatively Keep Silverlon dressing in place until follow-up DVT prophylaxis with aspirin and OJ stockings Pain control with p.o. medication Plan is to discharge home later this morning with in-home physical therapy for the first 2 weeks Follow-up at [facility] orthopedics as previously scheduled With questions contact our clinic at [phone] Total Time Total Time Spent Total Time Spent (In Minutes): 20 minutes Discharge Plan Discharge Items Patient Disposition: Home - Home Health Services Reason For Visit: Left Knee Osteoarthritis Discharge Diagnosis: Left Knee Osteoarthritis Activity: As commented below Lifting: None Bathing: Keep incision dry Bathing Comment: May shower tomorrow Sexual Activity: Wait until after follow-up appointment Exercise/Sports: Wait until after follow-up appointment Driving/Machine Use: No driving until cleared by medical record retrieval specialist Weightbearing: Left weightbearing Weightbearing Comment: as tolerated with walker and immobilizer for first 48 hrs Non-emergency contact: Surgeon Call non-emergency contact if: you have any medication questions, your pain is not controlled, your temperature is above 101.5, your wound has increased dr storey and your wound pain has increased Follow-up/Referrals: Viktor Geiger PA-C [Physician Set Up Operator] - 10/17/22 10:45 am PCP,GAMA [Physician] - Diet: Regular Addtl Attending Provider Instructions: Post-operative Instructions Dear Patient and Family/Friends, Before you are discharged from the hospital, it is important to know what to expect when you get home after surgery. To that end, we have created this sheet of discharge instructions which covers many commonly asked questions. Make sure you go through this sheet in its entirety with your nurse before you are discharged. Please note that we will go over the specifics of your surgery and recovery when you return for your first post-operative visit. Sincerely, Dr. Connolly Medications 1. Oxycodone 5 mg: Take 1-2 tabs every 4-6 hours as needed for postoperative pain control. A prescription will be sent to your pharmacy for this medication. 2. Diclofenac sodium 75 mg tablet: Take 1 tab twice daily for the first 30 days postoperatively for pain and inflammation relief. A prescription will be sent to your pharmacy with 1 refill. 3. Aspirin 81 mg tablet: Take 1 tab twice daily for the first 30 days postoperatively for blood clot prevention. Please purchase this medication 4. Extra strength Tylenol 500 mg tablet: Take 2 tabs every 6-8 hours as needed for additional pain relief. Please purchase medication. Pain Expect to be in a fair amount of pain after surgery. Remember, our goal is not to eliminate your pain, but to make it tolerable. It is a good idea to stay ahead of your pain by taking the medications you were prescribed once you get home. Typically, the pain starts improving 3-7 days after surgery. You should start weaning off the narcotic pain medication (oxycodone, hydrocodone, hydromorphone, morphine) as soon as your pain improves. Please call our office if your pain is not adequately controlled. Ice Ice your operative site at least 5 times a day for 15-30 minutes at a time. Make sure you have a thin cloth between the ice or cooling unit and your skin to prevent lilly bite. This is especially important if you received a nerve block. Continue icing your operative site for the first 5-7 days after surgery, then as needed. Diet/Nausea/Vomiting Start by drinking clear liquids and eating crackers. If you can tolerate this, then you may resume your normal diet. If you feel nauseated or vomit, take Zofran/ondansetron (if prescribed). Please call our office if you have intractable nausea or vomiting, or, if after hours, you may go to the Emergency Room for help. Constipation Constipation is a common side effect of narcotic pain medication. If you have not had a bowel movement within 2 days after surgery, we recommend purchasing an over the counter laxative such as Milk of Magnesia, Dulcolax, or Miralax from a local pharmacy, and taking it as instructed. Call our clinic if any questions. Slings and Braces If you were placed in a sling or brace, it must be worn at all times, including sleep. You may remove your sling or brace for physical therapy, home exercises, and showering. The length of time you will be in your brace and range of motion restrictions depends on what surgery you had; these details will be reviewed at your first post-operative appointment. Nerve block The anesthesia team sometimes places a nerve block to help with post-operative pain control. This results in significant numbness and inability to move the extremity. The nerve block usually wears off in 8-12 hours, but sometimes can last up to 24 hours. Please call our office if you are still unable to move your extremity after 24 hours, unless you received a pain pump to take home. Nerve blocks typically wear off quickly, so start taking pain medication as soon as you start feeling soreness near your surgical site. Weight bearing and Range of Motion. Do not bear any weight through your operative extremity immediately after surgery. If you had upper extremity surgery, do not lift anything with that arm. If you are in a knee brace, keep it locked in place until your follow-up. We will discuss your weight bearing, range of motion, and lifting restrictions in detail at your first post-operative appointment. Continuous Passive Motion (CPM) Machine If you were prescribed a CPM machine, it will start after your first post- operative appointment, at which time we will give you instructions on the range of motion settings and duration of treatment Physical therapy You will be given a prescription for physical therapy or occupational therapy at your first post-operative appointment. Typically, patients start therapy within 1 week of surgery Wound care and showering We will inspect your wound at your first post-operative visit, and may do a dressing change at that time. Most patients will be in a water-proof dressing that is removed 14 days after surgery. It is normal to see some dried blood on the dressing. Do not remove your dressing, paper strips or sutures yourself unless you are given permission. Showering is allowed the day after surgery. Do not scrub or remove any dressings. The wound should not be submerged underwater (i.e. in a bathtub or pool) until 4 weeks after surgery OJ stockings If you were given white stockings, these are to be worn at all times except to shower (on both legs) for the first 2 weeks after surgery. Driving You may not drive while taking narcotic pain medication or while in a cast, splint, sling or brace. You, the patient, need to make the final determination about when you are safe to drive, however, the earliest you may consider driving after surgery is below: Hand/Wrist/Elbow Surgery: 3 days Shoulder Surgery: 2 weeks Hip,/Knee/Ankle Surgery: 4 weeks Fracture repair: 6 weeks Return to Work Your return to work depends on what surgery was done and what type of work you do. Please bring any paperwork your employer needs completed to your first post-operative visit. Also, bring a description of your job duties, as this helps us to understand what risks you may face at work. Travel Avoid long distance travel (greater than 1 hour) in airplanes and cars for the first 6 weeks after surgery. If you must travel, you need to have a Doppler ultrasound done before you travel to rule out a blood clot in your legs. Follow-up You should have a follow-up appointment already scheduled 1-2 days after surgery. If not, please contact our office to make this appointment before you leave the hospital. When to call the office It is normal to have swelling and bruising in the limb that was operated on. This will improve with time. It is also normal to have fevers for the first 2 days after surgery. Reasons you should call your doctor include: Uncontrolled pain; Nausea, vomiting, or constipation that does not improve with medication; Fevers over 101.5, chills, sweats; Drainage or bleeding from the wound; Foul odor; Spreading areas of redness; Any other concerns Pending Studies at Discharge: No Stand-Alone Forms: My [facility] Medications and DC Order Prescriptions: New aspirin 81 mg Tablet,Delayed Release (Dr/Ec) 81 mg PO BID 30 Days Qty: 60 0RF oxycodone 5 mg Tablet 5 - 10 mg PO Q4H PRN (Reason: Postoperative pain control (initial prescription)) Qty: 28 0RF diclofenac sodium 75 mg tablet,delayed release (DR/EC) 75 mg PO BID 30 Days Qty: 60 1RF Continued sertraline [Zoloft] 25 mg Tablet 25 mg PO HS atorvastatin 40 mg Tablet 40 mg PO QAM omeprazole 40 mg Capsule,Delayed Release(Dr/Ec) 40 mg PO QAM gabapentin 300 mg Capsule 300 mg PO BID multivitamin Tablet 1 tab PO QAM Discontinued tramadol 50 mg Tablet 50 mg PO UD PRN (Reason: Pain) naproxen 500 mg Tablet 500 mg PO BID PRN (Reason: Pain) Admission Data Admit Date/Time: 10/04/22 13:44 Attending Provider: Chase Connolly Admit Provider: Chase Connolly Primary Care Provider: Lupe Abbasi
[2022-10-05] MEDS ORDERED: ASPIRIN 81 MG ECTAB PO SCH (21:00)
== END 2022-10-05 12:02 | disposition home health service (06) ==
LOC: 3E 08:30 → ASU 08:30

== ENCOUNTER 2023-03-07 05:02 | Observation (INO) ==
--- NOTE | 2023-02-22 15:46 | History & Physical Report ---
Date of Service February 22, 2023 Assessment & Plan (1) Osteoarthritis of right knee: Plan: PRE-OP Diagnosis: Right knee Osteoarthritis Planned Procedure: Right total knee arthroplasty Plan: Patient is scheduled to undergo this procedure at the [facility] with Dr. Connolly on March 07, 2023. Risks and complications of the procedure such as: Infection, bleeding, pain, scarring, nerve blood vessel damage, weakness, wound problems, stiffness, incomplete relief of symptoms, hardware failure, hardware loosening, wear, fracture, tendon or ligament injury, blood clots, embolism, cardiac, stroke and were explained to the patient at her visit today and informed consent for the procedure was obtained. Patient also understands risks of proceeding with surgical intervention during the COVID-19 pandemic. Currently she is asymptomatic and states that she has not been in contact with anyone positive for the virus recently. We will need to obtain preoperative medical clearance from the patient's primary care provider. Lupe Abbasi PA-C. Patient does not need to meet with anesthesia because she recently saw them for her left total knee arthroplasty. However, she will need to obtain an updated CBC with differential, complete metabolic panel, PT/INR, urinalysis, urine culture and sensitivity, and a nasal culture for MRSA. Her EKG is up-to-date. During today's visit we reviewed the total knee packet. I provided the patient with paperwork to obtain obtaining a handicap placard for her vehicle. 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 Patient has a walker, raised toilet seat in the shower bench w from her previous surgery. We discussed discharge planning from the hospital. Patient states she will most likely do in-home physical therapy for the first 2 weeks before transitioning to outpatient physical therapy. I advised the patient that she will be provided with a prescription for narcotic pain medication for postoperative pain control. We will have her on aspirin twice daily for the first 30 days postoperatively for blood clot prevention. Patient be scheduled for 2-week postoperative follow-up visit with myself on March 20. This chart was completed utilizing [employer] voice recognition software. Grammatical errors, random word insertions, pronoun errors, and in complete sentences are an occasional consequence of the system. Any questions or concerns about the content, text, or information contained within the body of this dictation should be addressed directly to the physician for clarification. History of Present Illness Chief Complaint: Chief Complaint: Right knee pain Primary Care Provider: Lupe Abbasi PA-C History of Present Illness (including history relevant to procedure): This 57-year-old female presents to clinic today for preoperative history and physical. Patient complains of a longstanding history of right knee pain that is refractory to conservative management. Patient localizes most of her pain over the medial aspect the knee and has a visible malalignment which she states that there is her ability to walk normally off. Patient had a left total knee arthroplasty back in August with Dr. Connolly and is recovered completely. She is very pleased with the results and would like to proceed with surgical intervention for her severe arthritis in the left knee. Review Of Systems: A 12 point review of systems is performed and is unremarkable except for those things stated in the HPI and past medical history. Past Medical History: Problems: Osteoarthritis of left knee Knee osteomyelitis, left Preop examination GERD (gastroesophageal reflux disease) High cholesterol Procedure History Procedure Procedure Date Comments Left knee - Meniscus surgery x 2 Cervical spinal fusion - [facility] Total knee replacement 2022 - left Allergies and Sensitivities: erythromycin(hives) codeine(hives) Tylenol(Hives) sulfADIAZINE(Hives) PCN (penicillin)(hives) Current Home Meds: (Last Updated 02/22 12:58) atorvastatin (atorvastatin 20 mg oral tablet) 20 mg PO Daily chlorhexidine topical (chlorhexidine 2% topical pad) Wipe nasal passages 3 times daily, starting 5 days before surgery. ciprofloxacin (Cipro 500 mg oral tablet) 500 mg PO q12h ciprofloxacin (Cipro 500 mg oral tablet) 500 mg PO q12h UTI diclofenac (diclofenac sodium 75 mg oral delayed release tablet) 1 tab PO bid PRN: if needed for pain with food gabapentin (gabapentin 300 mg oral capsule) 300 mg PO qid mupirocin topical (Bactroban 2% topical ointment) 1 appl topical tid apply a thin film to nasal passagesStart 5 days before surgery naproxen (naproxen 500 mg oral tablet) 500 mg PO bid PRN: as needed for pain nortriptyline (nortriptyline 10 mg oral capsule) omeprazole (omeprazole 20 mg oral delayed release capsule) 20 mg PO bid tiZANidine (tiZANidine 2 mg oral tablet) 8 mg PO q8h Initial Wt: 02/22 84.4 kg 186 lb Allergies Allergy/AdvReac Type Severity Reaction Status Date / Time acetaminophen Allergy Unknown Rash Verified 10/04/22 08:54 codeine Allergy Unknown Rash Verified 10/04/22 08:54 erythromycin base Allergy Unknown Rash Verified 10/04/22 08:54 Penicillins Allergy Unknown rash, Verified 10/04/22 08:54 throat irritation Sulfa (Sulfonamide Allergy Unknown Rash Verified 10/04/22 08:54 Antibiotics) Home Medications Medication Instructions Recorded Confirmed Type atorvastatin 40 mg tablet 40 mg PO QAM 01/17/21 10/04/22 History gabapentin 300 mg capsule 300 mg PO BID 01/17/21 10/04/22 History multivitamin 1 tab PO QAM 01/17/21 10/04/22 History omeprazole 40 mg capsule,delayed 40 mg PO QAM 01/17/21 10/04/22 History release sertraline 25 mg tablet (Zoloft) 25 mg PO HS 03/22/22 10/04/22 History diclofenac sodium 75 mg 75 mg PO BID Postoperative pain 10/05/22 Rx tablet,delayed release and inflammation relief 30 days #60 tabs oxycodone 5 mg tablet 5 - 10 mg (1 - 2 x 5 mg) PO Q4H 10/05/22 Rx PRN Postoperative pain control (initial prescription) #28 tabs Past Med/Surg History Medical History Osteoarthritis hx injection left knee Mar 2022. Hot flashes states reason for Zoloft GERD (gastroesophageal reflux disease) Well controlled and stable Hyperlipidemia Surgical History History of bilateral tubal ligation "at [facility]" History of x 3 Fusion of spine Cervical (ROM "30%) s/p fall at work Residual minimal dysphagia and left arm pain from surgery History of carpal tunnel release LEFT History of esophagogastroduodenoscopy (EGD) History of colonoscopy Family History Father Family hx of colon cancer Other No family history of adverse response to anesthesia Social History Smoking Status: Never smoker Second Hand Exposure: No; Do You Dip or Chew Tobacco: No; Hx Alcohol Use: Yes Alcohol type: wine Hx Substance Use: No Preferred Language: Belarusian Communication Ability: Effective Cosmetics Presser Required: No Beliefs That Will Affect Care: Restorationist Restorationist Beliefs: hoahaoism Current Living Situation: Spouse Feels Safe at Home: Yes Assistive Devices: Walker Review of Systems All systems reviewed & are unremarkable except as noted in Subjective Physical Exam Physical Exam: Physical Exam: (relevant to the procedure, including heart and lung evaluation) General: Alert and oriented x 3 with proper grooming and hygiene Eyes: Pupils are equal and reactive to light with accommodation. Extraocular movements are intact Throat: Posterior oropharynx is clear with absence of edema, erythema or exudate Cardiac: Regular rate and rhythm with no murmurs or gallops appreciated Lungs: Clear to auscultation throughout with no wheezing, rales or rhonchi Abdomen: Mildly obese, nondistended, nontender with NABS Extremities: Knee: Range of motion is from 0 degrees of extension to 100 degrees of flexion. Patient experiences medial joint line tenderness when the knee is palpated in the flexed position. Her patella is not mobile due to arthritic change. She has developed visible valgus malalignment. There is no laxity with varus or valgus stressing. AP drawer sign Tru test are negative. Patient is neurovascularly intact in the right lower extremity. Neuro: Cranial nerves II through XII are intact with no motor or sensory deficit Skin: Normal appearance with no open skin areas or discharge Results & Data Diagnostic Findings Studies (relevant to the procedure): X-rays of her right knee which showed [id number] arthritis in the lateral tibiofemoral space
--- NOTE | 2023-03-01 11:29 | Anesthesiology Consultation ---
Date of Service March 01, 2023 Assessment & Plan (1) Encounter for pre-operative examination: Chart Review Chart Review: Acceptable Risk for Surgery (pending final PCP clearance and DOS PTT ) and Patient NOT seen in Pre Admission Testing - Awaiting final PCP clearance (PCP was waiting lab results) - Check PTT state DOS (not done preoperatively- elevated in the past) Pt currently scheduled as 23 hours observation. If surgeon decides to change patient to [facility], patient would be acceptable risk for TKA, pending patient is motivated, has good support and surgeon's office completes [facility] preop requirements. -Infectious Disease screening: Per PAT nursing assessment on 03/01/23. Patient tested Covid positive 02/07/23- had fatigue, sore throat, loss of taste/smell). Symptoms have since resolved. No known infectious disease contacts in past 10 days or current infectious disease symptoms. No recent travel outside the country. Patient seen by PCP 02/25/23= Seen for preop evaluation. Scheduled for right TKA. Completing course of antibiotics for treatment of UTIto finish antibiotics 02/28/2023. Reports symptoms are mostly resolved. "Patient is doing well at this time. She has no new or current concerns. She will have labs completed today per surgeon's preop testing. Clearance will be pending results of labs. Will review once available." Addendum 02/25/23= Patient's UA and culture showed UTIbacteria susceptible to ciprofloxacinshe should continue antibiotic as prescribed. Left total knee AP 10/04/22= Done under [facility]. History Surgery Operation Date: 03/07/23 07:00 Proposed Procedures p Right Total Knee Arthroplasty(Right) - Chase Connolly MD Height/Weight Height: 5 ft 1 in Weight: 85.729 kg Allergies Allergy/AdvReac Type Severity Reaction Status Date / Time Penicillins Allergy Intermediate rash, Verified 03/01/23 08:30 throat irritation acetaminophen Allergy Mild Rash Verified 03/01/23 08:30 codeine Allergy Mild Rash Verified 03/01/23 08:30 erythromycin base Allergy Mild Rash Verified 03/01/23 08:30 Sulfa (Sulfonamide Allergy Mild Rash Verified 03/01/23 08:30 Antibiotics) Medications Home Medications Medication Instructions Recorded Confirmed Last Taken atorvastatin 40 mg tablet 40 mg PO QAM 01/17/21 03/01/23 10/04/22 05:00 gabapentin 300 mg capsule 300 mg PO BID 01/17/21 03/01/23 10/04/22 05:00 sertraline 25 mg tablet (Zoloft) 25 mg PO HS 03/22/22 03/01/23 10/03/22 21:00 Past Medical History Medical History GERD (gastroesophageal reflux disease) History of COVID-19 02/07/23>dx [facility] pcr test at pcp office (feels better) Hot flashes states reason for Zoloft Hyperlipidemia Osteoarthritis hx injection left knee Mar 2022. Past Family History Family History Father Family hx of colon cancer Other No family history of adverse response to anesthesia Past Surgical History Surgical History Fusion of spine Cervical (ROM "30%) s/p fall at work Residual minimal dysphagia and left arm pain from surgery History of bilateral tubal ligation "at [facility]" History of x 3 History of carpal tunnel release LEFT History of colonoscopy History of esophagogastroduodenoscopy (EGD) History of total knee replacement Left TKA 10/04/22 Social History Smoking Status: Never smoker Do You Dip or Chew Tobacco: No Hx Alcohol Use: Yes Alcohol type: wine alcohol intake frequency: a few times a month substance use type: does not use Testing Laboratory Results 02/25/23= WBC: 5.0 H/H: 14.5/42.5 PLATELETS: 430 SODIUM: 138 POTASSIUM: 4.3 CHLORIDE: 100 CO2: 32 BUN: 16 CREATININE: 0.58 GLUCOSE: 86 PT: 11.9 INR: 1.1 UA: Negative URINE CULTURE: 10,000-49,000 CFU/ml of Group B Streptococcus isolated Electrocardiogram Date: 09/11/22 Findings: + NSR @ (82bpm ) Normal EKG per cardio
[2023-03-07] MEDS ORDERED: ceFAZolin 2000MG 2,000 MG/15 ML SYR IV SCH (06:00)
[2023-03-07] MEDS ORDERED: TRANEXAMIC ACID 1,000 MG **IV Intra-op IV SCH (06:00)
[2023-03-07] MEDS ORDERED: dexAMETHasone**PF** 10 MG/ML VIAL IV SCH (06:00)
[2023-03-07] MEDS ORDERED: FAMOTIDINE 20 MG TAB PO SCH (06:00)
[2023-03-07] MEDS ORDERED: traMADol HCL 50 MG TABLET PO SCH (06:00)
[2023-03-07] MEDS ORDERED: LR 60ML/HR IV SCH (06:00)
[2023-03-07] MEDS ORDERED: TRANEXAMIC ACID 1,000 MG **IV Pre-op IV SCH (06:00)
[2023-03-07] MEDS ORDERED: LR 500ML BOLUS, THEN 15ML/HR IV SCH (06:00)
[2023-03-07] MEDS ORDERED: Scopolamine 1 MG TDSY TD SCH (06:00)
[2023-03-07] MEDS ORDERED: ROPIVACAINE 0.5% HCL/PF 246 MG, Ketorolac (*for OR use only*) 30 MG, EPINEPHrine 30MG/3... INFIL SCH (06:00)
[2023-03-07] MEDS ORDERED: BUPIVACAINE 0.25% PF 30 ML VIAL ONE (06:22)
[2023-03-07] MEDS ORDERED: BUPIVACAINE 0.5 % 5 MG/1 ML PF 10ML VIAL ONE (06:22)
[2023-03-07 06:31] LABS: Partial Thromboplastin Ratio 1.2; Partial Thromboplastin Time 35 Seconds (21-31)
[2023-03-07] MEDS ORDERED: ORTHO JOINT ANESTHETIC ONE (06:35)
[2023-03-07] MEDS ORDERED: MIDAZOLAM HCL 1 MG/ML 2ML VIAL ONE ×2 (06:42→06:44)
--- NOTE | 2023-03-07 06:42 | History & Physical Bridge Note ---
Date of Service March 07, 2023 History & Physical Bridge Note I have examined the patient, reviewed the History & Physical and in the interval since the performance of the History & Physical I have noted the following changes of clinical significance: no changes noted
[2023-03-07] MEDS ORDERED: fentaNYL citrate PF 100 MCG/2 ML VIAL ONE (06:44)
[2023-03-07] MEDS ORDERED: PROPOFOL IV EMULSION 10 MG/ML 20 ML VIAL IV ONE ×2 (06:49→07:17)
[2023-03-07] MEDS ORDERED: ePHEDrine sulfate 50 MG/ML AMP IV PRN (06:59)
[2023-03-07] MEDS ORDERED: fentaNYL citrate PF 100 MCG/2 ML VIAL IV PRN (06:59)
[2023-03-07] MEDS ORDERED: ATROPINE SULFATE 0.1 MG/ML 10ML SYR IV PRN (06:59)
[2023-03-07] MEDS ORDERED: ONDANSETRON INJ 2 MG/ML 2 ML VIAL IV PRN ×2 (06:59→08:51)
[2023-03-07] MEDS ORDERED: ONDANSETRON INJ 2 MG/ML 2 ML VIAL ONE (07:18)
[2023-03-07] MEDS ORDERED: LIDOCAINE 2% 2 ML VIAL/AMP(20MG/ML) INFIL ONE (07:18)
--- NOTE | 2023-03-07 08:42 | Operative Report ---
Post Operative Report Pre & Post Diagnosis Operation Date: 03/07/23 07:00 Pre-Op Diagnosis: Right Knee Osetoarthritis Post-Op Diagnosis: Right Knee Osetoarthritis I identified the patient and participated in the time-out.: Yes Procedure Operation Date: 03/07/23 07:00 Actual Procedures p Right Total Knee Arthroplasty, Cemented(Right) - Chase Connolly MD Surgeon Chase Connolly MD Vender AMBROSIO Geiger PA-C. No resident or fellow was available to assist Estimated Blood Loss 100 Findings Consistent with Post-Op Diagnosis Specimens right knee bone and soft tissue contents Anesthesia Type Spinal MAC Complications none Disposition Disposition: Recovery Room Indications 57-year-old female with right knee osteoarthritis refractory to conservative management. she has previously undergone a knee replacement on the contralate ral left knee was a good result. X-rays demonstrate joint space narrowing, subchondral sclerosis, and marginal osteophyte formation. I had a long discussion with her about the risks and benefits of surgery, alternatives to surgery, and expected outcomes. After reviewing these she would like to proceed with surgery. All questions were answered. Informed consent was signed. Description of Procedure Patient was identified in the preoperative holding area where the surgical site, Right knee, was marked. Spinal anesthetic was placed by anesthesia. Patient was brought back to the operating room, placed on the operating room table, and IV sedation was administered. A bump was placed underneath the ipsilateral hip. All bony prominences were padded. Perioperative antibiotics and tranexamic acid were administered. Exam under anesthesia was performed. this demonstrated range of motion 2 to 105 degrees. Stable to varus and valgus at 30 degrees. The surgical site was prepped and draped in the normal sterile fashion. Prior to incision a multidisciplinary timeout was called. All in the room were in agreement. We began by exsanguinating the limb with an Esmarch bandage. Tourniquet was inflated to 250 mmHg. A 14 cm long incision was made over the anterior aspect of the knee. I dissected through the subcutaneous tissues to the level of the fascia. Full-thickness flaps were raised above the fascia. A median parapatellar arthrotomy was made. Half the fat pad was excised. A medial release was performed with Bovie electrocautery on the proximal tibia. Synovitis in the knee and suprapatellar pouch was removed. The patella was then everted and held with 2 towel clips. The thickness of the patella was measured at 21 mm. Patellar resection was performed. Caliper showed the patella thickness now to be 14 mm. A size 35 trial was placed and had a great fit. The 3 drill holes were placed then the trial button was placed. The patellar thickness was now 23 mm which I was very happy with. The patellar trial was then removed, and the knee was flexed up. Retractors were placed to protect the MCL and LCL. Osteophytes were removed from the femoral condyles and intercondylar notch. The ACL and PCL were excised. Intramedullary drill guide was drilled into the femur. Distal femoral cutting guide was placed set at 5 degrees of valgus to resect 10 mm off the distal femur. Distal femoral resection was made without difficulty. The tibia was then exposed. The lateral meniscus was sharply excised. The ti bial cutting jig was positioned in line with the tibial shaft in the coronal plane and with 3 degrees of posterior slope in the sagittal plane to resect 9 mm off the less involved compartment. The jig was then pinned in position and the tibial cut was made. We then brought the knee into full extension. Lamina spreaders were placed. The medial meniscus was excised. The extension block was then placed for 5 mm thickness poly. This gave us full extension and excellent stability to varus and valgus stress. Next the extension block was removed, the knee was flexed up, collateral ligaments were protected, and the epicondylar axis and Whitesides line were marked out on the distal femoral cut. Femoral sizing guide was placed. External rotation was set at 3 degrees so that the posterior cut would be parallel with the epicondylar axis and perpendicular with Whitesides line. The patient sized to a size 4 femur. 2 pins were then placed through the jig into the distal femur. The jig was removed and the appropriately sized 4-in-1 cutting jig was placed over the pins, then fixated to the bone using threaded, headed pins. We confirmed that we would not notch the femur with our anterior cut. Our 4 cuts were then made. The cutting jig was removed. lamina line assembler aircraft was placed and the flexion gap was examined. She was tight laterally with the popliteus being taut. Therefore I released the popliteus off the femur. Now he had a nice rectangular flexion gap. The 5 mm flexion block was then placed with the knee held at 90 degrees. There was excellent stability to varus and valgus at 90 degrees with no gapping medially or laterally. Next the box cutting jig was placed on the distal femur. The box cut was made and the femoral trial was impacted into position. Lug holes were drilled in the distal femur. We then reexposed the tibia. The tibia was sized to a 4 for a Fixed-bearing component. The tibial tray with a 5 mm thickness polyethylene liner was placed on the cut tibial surface and the knee was brought through a full range of motion. There was excellent stability to varus valgus stress throughout a full range of motion, which was approximately 0-120 degrees. Bovie electrocautery was used to annemarie the tibia at the site where the tibial tray rested in full extension. We then flexed up the knee, removed the polyethylene liner, and pinned the tibial tray into position to match the cautery annemarie. The intramedullary drill followed by the keel punch were used to prepare the tibia. Next the trial components were removed. I then injected the posterior capsule and periosteum with the periarticular injection cocktail. The bone cuts were then irrigated and dried while the cement was mixed on the back table. The femoral component was cemented on first. Excess cement was removed. A lap sponge was placed over the femoral component for protection, then the tibia was subluxated anteriorly. The all polyethylene tibial component was then cemented in place. Again excess cement was removed. The knee was brought into full extension and held there until the cement cured. The patella was cemented and clamped. Dilute Betadine solution was then allowed to soak in the knee while the cement cured. Once the cement was fully cured, the knee was irrigated out, the tourniquet was let down and meticulous hemostasis was ensured. The knee was brought through a full range of motion. I was were very happy with the patella tracking and the stability. We then began to close. Interrupted 0 Vicryl suture was used to repair the patellar retinaculum in [id number] fashion. The quadriceps and patellar tendons were run with #1 Vicryl. The deep dermal layer was closed with interrupted 2-0 Vicryl. Dermabond and Zipline was used for the skin, followed by a Silverlon dressing. A compressive Jorge L wrap was placed and the knee was placed into a knee immobilizer. Patient's sedation was lifted and was transferred to recovery room in stable condition. Summary of implants: Depuy Attune Posterior Stabilized Cemented Femur, size 4 right Attune All-polyethylene tibial component, posterior stabilized 5 mm thickness, size 4 Attune patella medialized dome, size 35 2 batches of Palacos high viscosity bone cement Postoperative course: Patient will be admitted to the floor for pain control and monitoring. Weightbearing as tolerated with a walker with no knee range of motion for 48 hours. Aspirin for DVT prophylaxis. I attest to the content of the Intraoperative Record and any orders documented therein. Any exceptions are noted below.
[2023-03-07] MEDS ORDERED: ALUMINUM/MAGNESIUM SUSP 30 ML UDC PO PRN (08:51)
[2023-03-07] MEDS ORDERED: NALOXONE HCL 0.4 MG/1 ML VIAL/CARP IV PRN (08:51)
[2023-03-07] MEDS ORDERED: MAGNESIUM HYDROXIDE SUSP 30 ML UDC PO PRN (08:51)
[2023-03-07] MEDS ORDERED: HYDROmorphone INJ 0.5 MG/0.5 ML SYR IV PRN (08:51)
[2023-03-07] MEDS ORDERED: diphenhydrAMINE 50 MG/ML VIAL IV PRN (08:51)
[2023-03-07] MEDS ORDERED: METOCLOPRAMIDE HCL INJ 5 MG/ML 2 ML VIAL IV PRN (08:51)
[2023-03-07] MEDS ORDERED: bisacodyL 10 MG SUPP PR PRN (08:51)
--- NOTE | 2023-03-07 08:51 | Operative Report ---
Post Operative Report Pre & Post Diagnosis Operation Date: 03/07/23 07:00 Pre-Op Diagnosis: Right Knee Osetoarthritis Post-Op Diagnosis: Right Knee Osetoarthritis I identified the patient and participated in the time-out.: Yes Procedure Operation Date: 03/07/23 07:00 Actual Procedures p Right Total Knee Arthroplasty, Cemented(Right) - Chase Connolly MD Surgeon Chase Connolly MD Method Consultant AMBROSIO Geiger PA-C. No resident or fellow was available to assist Estimated Blood Loss 100 Findings Consistent with Post-Op Diagnosis Specimens right knee bone and soft tissue Description of Procedure I was present during the entire case assisting with positioning, prepping, draping, wound retraction, wound closure, dressing and immobilizer placement. No fellow present. Please see Dr. Connolly procedure note for specifics of the case. I attest to the content of the Intraoperative Record and any orders documented therein. Any exceptions are noted below.
--- NOTE | 2023-03-07 09:09 | XRay Report ---
TWO VIEWS RIGHT KNEE CLINICAL HISTORY: Postoperative examination. FINDINGS: AP and crosstable lateral portable views of the right knee are obtained. A right knee arthr oplasty is in near anatomic alignment. There has been undersurface remodeling of the patella. No acut e fracture is seen. Subcutaneous gas and soft tissue edema around the knee are expected postsurgical changes. IMPRESSION: Expected postoperative changes status post right knee arthroplasty. No acute fracture is seen. ACT 112: Negative or not required by law. Electronically signed by: Farshad Watson M.D. 03/07/2023 9:08 AM
[2023-03-07] MEDS: ATORVASTATIN 40 MG TAB PO SCH (10:46)
[2023-03-07] MEDS: ASPIRIN 81 MG ECTAB PO SCH ×2 (10:46→20:48)
[2023-03-07] MEDS: GABAPENTIN 300 MG CAP PO SCH ×2 (10:46→20:50)
[2023-03-07] MEDS: MULTIVITAMIN TAB PO SCH (10:46)
[2023-03-07] MEDS: DOCUSATE SODIUM 100 MG CAP PO SCH ×2 (10:47→20:49)
[2023-03-07] MEDS: KETOROLAC TROMETHAMINE 15 MG/ML VIAL IV SCH ×2 (10:47→17:30)
[2023-03-07] MEDS: SODIUM CHLORIDE 0.9% 1,000 ML IV SCH ×2 (12:17→22:39)
--- NOTE | 2023-03-07 14:41 | Anesthesiology Progress Note ---
Date of Service March 07, 2023 Anesthesia Post Procedure Vital Signs Vital Signs: Temp Pulse Pulse Resp BP BP Pulse Ox 03/07/23 12:16 36.8 C 74 16 112/73 94 03/07/23 11:38 36.4 C L 81 16 109/74 95 03/07/23 10:28 36.8 C 71 16 106/69 93 03/07/23 09:58 36.3 C L 70 18 109/72 91 03/07/23 09:33 36.4 C L 66 16 116/79 99 03/07/23 09:15 36.4 C L 73 16 109/78 97 03/07/23 09:05 72 20 125/88 100 03/07/23 08:55 58 L 15 124/83 100 03/07/23 08:49 36.2 C L 70 19 120/88 100 03/07/23 05:46 36.7 C 75 18 96 O2 Del Method O2 Flow Rate 03/07/23 12:16 Room Air 03/07/23 11:38 Room Air 03/07/23 10:28 Room Air 03/07/23 09:58 Room Air 03/07/23 09:33 Room Air 03/07/23 09:15 Room Air 03/07/23 09:05 Room Air 03/07/23 08:55 Oxymask 13 03/07/23 08:49 Oxymask 13 03/07/23 05:46 Room Air Pain Intensity Right Knee: Pain Intensity: 4 Transfer of Care Handoff Completed per policy Notes Mental Status: alert / awake / arousable and participated in evaluation Patient Amnestic to Procedure: Yes Nausea / Vomiting: adequately controlled Pain: adequately controlled Airway Patency, RR, SpO2: stable & adequate BP & HR: stable & adequate Hydration State: stable & adequate Neuraxial Anesthesia: was administered and sensory block is resolving Anesthetic Complications: no major complications apparent and Pt Satisfied with anesthetic care
[2023-03-07] MEDS ORDERED: TRANEXAMIC ACID / 0.7% NACL 1,000 MG/100 ML BAG IV SCH (15:00)
[2023-03-07] MEDS: ACETAMINOPHEN 500 MG TAB PO SCH ×2 (15:11→21:04)
[2023-03-07] MEDS: oxyCODONE HCL IR 5 MG TAB (IMMEDIATE RELEASE) PO PRN ×2 (15:17→20:49)
[2023-03-07] MEDS: ceFAZolin 2000MG 2,000 MG/15 ML SYR IV SCH ×2 (15:18→22:39)
[2023-03-07] MEDS: Scopolamine CHECK PATCH PLACEMENT SCH (17:29)
[2023-03-07] MEDS ORDERED: SERTRALINE HCL 50 MG TABLET PO SCH (21:00)
[2023-03-07] MEDS ORDERED: SENNA 8.6 MG TAB PO SCH (21:00)
[2023-03-08] MEDS: KETOROLAC TROMETHAMINE 15 MG/ML VIAL IV SCH ×2 (00:08→05:40)
[2023-03-08] MEDS: Scopolamine CHECK PATCH PLACEMENT SCH ×2 (00:08→07:48)
[2023-03-08] MEDS: oxyCODONE HCL IR 5 MG TAB (IMMEDIATE RELEASE) PO PRN ×2 (04:00→10:25)
[2023-03-08] MEDS: ACETAMINOPHEN 500 MG TAB PO SCH (05:40)
[2023-03-08] MEDS: SODIUM CHLORIDE 0.9% 1,000 ML IV SCH (06:28)
[2023-03-08 06:50] LABS: Hematocrit (blood only) 31.2 % (37.0-47.0); Hemoglobin 10.8 g/dl (12.0-16.0); Mean Corpuscular Hemoglobin 31.9 pg (25.0-34.0); Mean Corpuscular Hgb Conc 34.6 g/dL (32.0-36.0); Mean Platelet Volume 10.6 fL (9.4-12.4); Platelet Count 156 K/uL (130-400); RDW Standard Deviation 40.3 fL (36.4-46.3); Red Blood Count 3.39 M/uL (4.20-5.40); White Blood Count 7.91 K/ul (4.8-10.8)
[2023-03-08 07:02] LABS: BUN Creatinine Ratio 25.9 (10-20); Creatinine Clr Calc Pharmacy 108.9 ml/min; Est GFR (African American) 119.4 ml/min; Potassium 3.9 mmol/L (3.5-5.1)
[2023-03-08] MEDS: MULTIVITAMIN TAB PO SCH (07:47)
[2023-03-08] MEDS: GABAPENTIN 300 MG CAP PO SCH (07:47)
[2023-03-08] MEDS: DOCUSATE SODIUM 100 MG CAP PO SCH (07:47)
[2023-03-08] MEDS: ASPIRIN 81 MG ECTAB PO SCH (07:48)
[2023-03-08] MEDS: ATORVASTATIN 40 MG TAB PO SCH (07:48)
[2023-03-08] MEDS ORDERED: dexAMETHasone 4 MG TAB PO SCH (08:00)
--- NOTE | 2023-03-08 09:16 | Discharge Summary ---
Date of Service March 08, 2023 Admission HPI Per Admitting Provider History of Present Illness (including history relevant to procedure): This 57-year-old female presents to clinic today for preoperative history and physical. Patient complains of a longstanding history of right knee pain that is refractory to conservative management. Patient localizes most of her pain over the medial aspect the knee and has a visible malalignment which she states that there is her ability to walk normally off. Patient had a left total knee arthroplasty back in August with Dr. Connolly and is recovered completely. She is very pleased with the results and would like to proceed with surgical intervention for her severe arthritis in the left knee. Review Of Systems: A 12 point review of systems is performed and is unremarkable except for those things stated in the HPI and past medical history. Past Medical History: Problems: Osteoarthritis of left knee Knee osteomyelitis, left Preop examination GERD (gastroesophageal reflux disease) High cholesterol Procedure History Procedure Procedure Date Comments Left knee - Meniscus surgery x 2 Cervical spinal fusion - [facility] section Total knee replacement 2022 - left Allergies and Sensitivities: erythromycin(hives) codeine(hives) Tylenol(Hives) sulfADIAZINE(Hives) PCN (penicillin)(hives) Current Home Meds: (Last Updated 02/22 12:58) atorvastatin (atorvastatin 20 mg oral tablet) 20 mg PO Daily chlorhexidine topical (chlorhexidine 2% topical pad) Wipe nasal passages 3 times daily, starting 5 days before surgery. ciprofloxacin (Cipro 500 mg oral tablet) 500 mg PO q12h ciprofloxacin (Cipro 500 mg oral tablet) 500 mg PO q12h UTI diclofenac (diclofenac sodium 75 mg oral delayed release tablet) 1 tab PO bid PRN: if needed for pain with food gabapentin (gabapentin 300 mg oral capsule) 300 mg PO qid mupirocin topical (Bactroban 2% topical ointment) 1 appl topical tid apply a thin film to nasal passagesStart 5 days before surgery naproxen (naproxen 500 mg oral tablet) 500 mg PO bid PRN: as needed for pain nortriptyline (nortriptyline 10 mg oral capsule) omeprazole (omeprazole 20 mg oral delayed release capsule) 20 mg PO bid tiZANidine (tiZANidine 2 mg oral tablet) 8 mg PO q8h Initial Wt: 02/22 84.4 kg 186 lb Admission Exam Per Admitting Provider Physical Exam: (relevant to the procedure, including heart and lung evaluation) General: Alert and oriented x 3 with proper grooming and hygiene Eyes: Pupils are equal and reactive to light with accommodation. Extraocular mo vements are intact Throat: Posterior oropharynx is clear with absence of edema, erythema or exudate Cardiac: Regular rate and rhythm with no murmurs or gallops appreciated Lungs: Clear to auscultation throughout with no wheezing, rales or rhonchi Abdomen: Mildly obese, nondistended, nontender with NABS Extremities: Knee: Range of motion is from 0 degrees of extension to 100 degrees of flexion. Patient experiences medial joint line tenderness when the knee is palpated in the flexed position. Her patella is not mobile due to arthritic change. She has developed visible valgus malalignment. There is no laxity with varus or valgus stressing. AP drawer sign Tru test are negative. Patient is neurovascularly intact in the right lower extremity. Neuro: Cranial nerves II through XII are intact with no motor or sensory deficit Skin: Normal appearance with no open skin areas or discharge Principal Diagnosis Right knee osteoarthritis Discharge Exam Right knee: Outer dressing was removed. Silverlon is clean dry and intact and left in place. Patient is able to reach 0 degrees of extension and flex to 80 degrees actively. She is able to perform an active straight leg raise test and actively dorsi and plantarflex her foot without issue. Her peripheral pulses are 2+. Capillary fill is less than 2 seconds. Quad strength is 4+ out of 5. She is neurovascularly intact in the right lower extremity. Discharge Data Allergies Allergy/AdvReac Type Severity Reaction Status Date / Time Penicillins Allergy Intermediate rash, Verified 03/07/23 05:44 throat irritation acetaminophen Allergy Mild Rash Verified 03/07/23 05:44 codeine Allergy Mild Rash Verified 03/07/23 05:44 erythromycin base Allergy Mild Rash Verified 03/07/23 05:44 Sulfa (Sulfonamide Allergy Mild Rash Verified 03/07/23 05:44 Antibiotics) Procedures Performed Operation Date: 03/07/23 07:00 Actual Procedures p Right Total Knee Arthroplasty, Cemented(Right) - Chase Connolly MD Ordered Studies 03/07/23 05:00 US - OR guided needle placemen Routine Hospital Course (1) S/P total knee arthroplasty: Patient had an uneventful overnight stay following total knee arthroplasty. She is doing very well this morning and is anxious to be discharged home. She is already established with in-home physical therapy for the first 2 weeks postoperatively. If she has questions or concerns or should arise prior to her follow-up she will contact our clinic. PT/OT Weightbearing as tolerated with walker assistance in the immobilizer for the first 48 hours postoperatively Ice with easy wrap Doxycycline for 5 days (postoperative infection prophylaxis) DVT prophylaxis with aspirin and OJ stockings Keep Silverlon dressing in place until 2-week follow-up Pain control with p.o. medication Plan is to discharge home today with in-home physical therapy for the first 2 weeks postoperatively [facility]up at [facility]oped[facility] as previously scheduled With questions contact her clinic at [phone] Total Time Total Time Spent Total Time Spent (In Minutes): 20 minutes Discharge Plan Discharge Items Patient Disposition: Home - Home Health Services Reason For Visit: Right Knee Osetoarthritis Discharge Diagnosis: Right knee osteoarthritis Activity: As commented below Lifting: None Bathing: Keep incision dry Bathing Comment: May shower tomorrow Sexual Activity: Wait until after follow-up appointment Exercise/Sports: Wait until after follow-up appointment Driving/Machine Use: No driving until cleared by physical education specialist Weightbearing: Right weightbearing Weightbearing Comment: as tolerated with walker and immobilizer for first 48 hrs Non-emergency contact: Surgeon Call non-emergency contact if: you have any medication questions, your pain is not controlled, your temperature is above 101.5, your wound has increased drainage and your wound pain has increased Follow-up/Referrals: Lupe Abbasi PA-C [Primary Care Provider] - Diet: Regular Addtl Attending Provider Instructions: Post-operative Instructions Dear Patient and Family/Friends, Before you are discharged from the hospital, it is important to know what to expect when you get home after surgery. To that end, we have created this sheet of discharge instructions which covers many commonly asked questions. Make sure you go through this sheet in its entirety with your nurse before you are discharged. Please note that we will go over the specifics of your surgery and recovery when you return for your first post-operative visit. Sincerely, Dr. Connolly Medications 1. Oxycodone 5 mg: Take 1-2 tabs every 4-6 hours as needed for postoperative pain control. A prescription for this medication will be sent to your pharmacy. 2. Aspirin 81 mg: Take 1 tab twice daily for the first 30 days postoperatively for blood clot prevention. 3. Naproxen 500 mg: Resume your twice daily regimen of naproxen for postoperative pain and inflammation relief. 4. Extra strength Tylenol 500 mg: Take 2 tabs every 6-8 hours as needed for additional pain relief. 5. Doxycycline 100 mg: Take 1 tab twice daily for postoperative infection prophylaxis. This will be sent to your pharmacy as well. Pain Expect to be in a fair amount of pain after surgery. Remember, our goal is not to eliminate your pain, but to make it tolerable. It is a good idea to stay ahead of your pain by taking the medications you were prescribed once you get home. Typically, the pain starts improving 3-7 days after surgery. You should start weaning off the narcotic pain medication (oxycodone, hydrocodone, hydromorphone, morphine) as soon as your pain improves. Please call our office if your pain is not adequately controlled. Ice Ice your operative site at least 5 times a day for 15-30 minutes at a time. Make sure you have a thin cloth between the ice or cooling unit and your skin to prevent lilly bite. This is especially important if you received a nerve block. Continue icing your operative site for the first 5-7 days after surgery, then as needed. Diet/Nausea/Vomiting Start by drinking clear liquids and eating crackers. If you can tolerate this, then you may resume your normal diet. If you feel nauseated or vomit, take Zofran/ondansetron (if prescribed). Please call our office if you have intractable nausea or vomiting, or, if after hours, you may go to the Emergency Room for help. Constipation Constipation is a common side effect of narcotic pain medication. If you have not had a bowel movement within 2 days after surgery, we recommend purchasing an over the counter laxative such as Milk of Magnesia, Dulcolax, or Miralax from a local pharmacy, and taking it as instructed. Call our clinic if any questions. Slings and Braces If you were placed in a sling or brace, it must be worn at all times, including sleep. You may remove your sling or brace for physical therapy, home exercises, and showering. The length of time you will be in your brace and range of motion restrictions depends on what surgery you had; these details will be reviewed at your first post-operative appointment. Nerve block The anesthesia team sometimes places a nerve block to help with post-operative pain control. This results in significant numbness and inability to move the extremity. The nerve block usually wears off in 8-12 hours, but sometimes can last up to 24 hours. Please call our office if you are still unable to move your extremity after 24 hours, unless you received a pain pump to take home. Nerve blocks typically wear off quickly, so start taking pain medication as soon as you start feeling soreness near your surgical site. Weight bearing and Range of Motion. Do not bear any weight through your operative extremity immediately after surgery. If you had upper extremity surgery, do not lift anything with that arm. If you are in a knee brace, keep it locked in place until your follow-up. We will discuss your weight bearing, range of motion, and lifting restrictions in detail at your first post-operative appointment. Continuous Passive Motion (CPM) Machine If you were prescribed a CPM machine, it will start after your first post- operative appointment, at which time we will give you instructions on the range of motion settings and duration of treatment Physical therapy You will be given a prescription for physical therapy or occupational therapy at your first post-operative appointment. Typically, patients start therapy within 1 week of surgery Wound care and showering We will inspect your wound at your first post-operative visit, and may do a dressing change at that time. Most patients will be in a water-proof dressing that is removed 14 days after surgery. It is normal to see some dried blood on the dressing. Do not remove your dressing, paper strips or sutures yourself unless you are given permission. Showering is allowed the day after surgery. Do not scrub or remove any dressings. The wound should not be submerged underwater (i.e. in a bathtub or pool) until 4 weeks after surgery OJ stockings If you were given white stockings, these are to be worn at all times except to shower (on both legs) for the first 2 weeks after surgery. Driving You may not drive while taking narcotic pain medication or while in a cast, splint, sling or brace. You, the patient, need to make the final determination about when you are safe to drive, however, the earliest you may consider driving after surgery is below: Hand/Wrist/Elbow Surgery: 3 days Shoulder Surgery: 2 weeks Hip,/Knee/Ankle Surgery: 4 weeks Fracture repair: 6 weeks Return to Work Your return to work depends on what surgery was done and what type of work you do. Please bring any paperwork your employer needs completed to your first post-operative visit. Also, bring a description of your job duties, as this helps us to understand what risks you may face at work. Travel Avoid long distance travel (greater than 1 hour) in airplanes and cars for the first 6 weeks after surgery. If you must travel, you need to have a Doppler ultrasound done before you travel to rule out a blood clot in your legs. Follow-up You should have a follow-up appointment already scheduled 1-2 days after surgery. If not, please contact our office to make this appointment before you leave the hospital. When to call the office It is normal to have swelling and bruising in the limb that was operated on. This will improve with time. It is also normal to have fevers for the first 2 days after surgery. Reasons you should call your doctor include: Uncontrolled pain; Nausea, vomiting, or constipation that does not improve with medication; Fevers over 101.5, chills, sweats; Drainage or bleeding from the wound; Foul odor; Spreading areas of redness; Any other concerns Pending Studies at Discharge: No Stand-Alone Forms: [facility] Medications and DC Order Prescriptions: New acetaminophen [Tylenol Extra Strength] 500 mg Tablet 1,000 mg PO Q8 30 Days Qty: 180 0RF aspirin 81 mg Tablet,Delayed Release (Dr/Ec) 81 mg PO BID 3 Days Qty: 6 0RF oxycodone 5 mg Tablet 5 - 10 mg PO Q4H MDD Ongoing treatment PRN (Reason: Postoperative pain control) Qty: 28 0RF doxycycline hyclate 100 mg tablet 100 mg PO BID 5 Days Qty: 10 0RF Continued sertraline [Zoloft] 25 mg Tablet 25 mg PO HS atorvastatin 40 mg Tablet 40 mg PO QAM gabapentin 300 mg Capsule 300 mg PO BID naproxen 500 mg Tablet 500 mg PO BID PRN (Reason: Pain) Admission Data Admit Date/Time: 03/07/23 08:51 Attending Provider: Chase Connolly Admit Provider: Chase Connolly Primary Care Provider: Lupe Abbasi
--- NOTE | 2023-03-08 09:16 | Orthopedic Progress Note ---
Date of Service March 08, 2023 Assessment & Plan (1) S/P total knee arthroplasty: Plan: PT/OT Weightbearing as tolerated with walker assistance in the immobilizer for the first 48 hours postoperatively Ice with easy wrap Doxycycline for 5 days (postoperative infection prophylaxis) DVT prophylaxis with aspirin and OJ stockings Keep Silverlon dressing in place until 2-week follow-up Pain control with p.o. medication Plan is to discharge home today with in-home physical therapy for the first 2 weeks postoperatively Follow-up at [facility] orthopedics as previously scheduled With questions contact her clinic at [phone] Admission and Anticipated Discharge Date Admission Date: March 07, 2023 Subjective This 57-year-old female is day 1 status post right total knee arthroplasty. She is doing very well. She states her pain is well-controlled with the p.o. pain medication she has been prescribed. She states she has been able to get up and use the restroom without issue. She states that any pain is much better than it was prior to surgery. Currently she denies chest pain, shortness of breath, fever, chills, sweats or numbness or tingling in her right lower extremity. She also denies nausea, vomiting, diarrhea or difficulty voiding. Review of Systems Review of Systems: All systems reviewed & are unremarkable except as noted in Subjective Physical Exam Physical Exam: Right knee: Outer dressing was removed. Silverlon is clean dry and intact and left in place. Patient is able to reach 0 degrees of extension and flex to 80 degrees actively. She is able to perform an active straight leg raise test and actively dorsi and plantarflex her foot without issue. Her peripheral pulses are 2+. Capillary fill is less than 2 seconds. Quad strength is 4+ out of 5. She is neurovascularly intact in the right lower extremity. Results & Data Vital Signs (Past 12 Hours) Vital Signs Temp Pulse Pulse Resp BP BP Pulse Ox 03/08/23 09:04 36.7 C 73 76 18 102/62 109/78 98 03/08/23 08:00 03/08/23 07:44 36.7 C 76 18 102/62 98 03/08/23 04:00 36.6 C 81 18 120/72 95 03/08/23 00:07 36.8 C 74 16 109/69 94 03/07/23 21:51 36.7 C 71 16 106/60 94 O2 Del Method 03/08/23 09:04 03/08/23 08:00 Room Air 03/08/23 07:44 Room Air 03/08/23 04:00 Room Air 03/08/23 00:07 Room Air 03/07/23 21:51 Room Air Diagnostic Findings Laboratory Results WBC 7.91 K/ul (4.8-10.8) 03/08/23 05:58 RBC 3.39 M/uL (4.20-5.40) L 03/08/23 05:58 Hgb 10.8 g/dl (12.0-16.0) L 03/08/23 05:58 Hct 31.2 % (37.0-47.0) L 03/08/23 05:58 MCV 92.0 fL (80.0-100.0) 03/08/23 05:58 MCH 31.9 pg (25.0-34.0) 03/08/23 05:58 MCHC 34.6 g/dL (32.0-36.0) 03/08/23 05:58 RDW Std Deviation 40.3 fL (36.4-46.3) 03/08/23 05:58 RDW Coeff of Beau 12.0 % (11.5-14.5) 03/08/23 05:58 Plt Count 156 K/uL (130-400) 03/08/23 05:58 MPV 10.6 fL (9.4-12.4) 03/08/23 05:58 APTT 35 Seconds (21-31) H 03/07/23 05:39 PTT Ratio 1.2 03/07/23 05:39 Sodium 137 mmol/L (136-145) 03/08/23 05:58 Potassium 3.9 mmol/L (3.5-5.1) 03/08/23 05:58 Chloride 106 mmol/L (98-107) 03/08/23 05:58 Carbon Dioxide 26 mmol/L (21-32) 03/08/23 05:58 Anion Gap 5 (3-11) 03/08/23 05:58 BUN 15 mg/dl (6-23) 03/08/23 05:58 Creatinine 0.58 mg/dl (0.6-1.2) L 03/08/23 05:58 Est Cr Clr Drug Dosing 108.9 ml/min 03/08/23 05:58 Est GFR ( Amer) 119.4 ml/min 03/08/23 05:58 Est GFR (Non-Af Amer) 103.0 ml/min 03/08/23 05:58 BUN/Creatinine Ratio 25.9 (10-20) H 03/08/23 05:58 Glucose 112 mg/dl (70-99(Fasting)) H 03/08/23 05:58 Calcium 8.0 mg/dl (8.6-10.3) L 03/08/23 05:58 Blood Type O Positive 03/07/23 05:39 Antibody Screen NEGATIVE 03/07/23 05:39 Impressions Knee X-Ray 03/07/23 08:51 TWO VIEWS RIGHT KNEE CLINICAL HISTORY: Postoperative examination. FINDINGS: AP and crosstable lateral portable views of the right knee are obtained. A right knee arthroplasty is in near anatomic alignment. There has been undersurface remodeling of the patella. No acute fracture is seen. Subcutaneous gas and soft tissue edema around the knee are expected postsurgical changes. IMPRESSION: Expected postoperative changes status post right knee arthroplasty. No acute fracture is seen. ACT 112: Negative or not required by law. Electronically signed by: Farshad Watson M.D. 03/07/2023 9:08 AM
== END 2023-03-08 11:02 | disposition home health service (06) ==
LOC: ASU 05:02 → 3E 05:02